=== PATIENT | male | born 1975 | race Caucasian/White ===

== ENCOUNTER 2018-04-27 19:52 | Inpatient (IN) | payer MEDICAID ==
[~2018-04-27] VITALS: Ht 167.6 cm; Wt 125.2 kg
--- NOTE | 2018-04-27 20:05 | NUR ---
PT MARIUSZ FROM [facility], FAMILY CALLED 911 FOR PT ETOH INTOXICATION. PT BG 132 IN THE FIELD. PT IN BED 12. WILL CONTINUE TO MONITOR.
--- NOTE | 2018-04-27 20:15 | NUR ---
PT FAMILY AT BEDSIDE
[2018-04-27] MEDS ORDERED: IV NS 0.9% 1,000 ML BAG IV ONE ×2 (20:30→22:00)
[2018-04-27] MEDS ORDERED: LORAZEPAM INJ 2 MG/ML VIAL IV ONE (20:30)
[2018-04-27] MEDS ORDERED: LORAZEPAM INJ 2 MG/ML VIAL ONE (20:31)
[2018-04-27 21:19] LABS: CREATININE 0.6 mg/dL (0.6-1.3)
[2018-04-27 21:27] LABS: ALBUMIN 1.7 g/dL (3.4-5.0); BILIRUBIN,DIRECT 13.8 mg/dL (0.0-0.2); BILIRUBIN,TOTAL 17.8 mg/dL (0.2-1.0); TOTAL PROTEIN, SERUM 8.1 g/dL (6.4-8.2)
[2018-04-27 21:32] LABS: BASOPHILS # (AUTO) 0.1 /CMM (0.0-0.2); BASOPHILS % (AUTO) 1.1 % (0.0-2.0); EOSINOPHILS % (AUTO) 0.6 % (0.0-6.0); HEMATOCRIT 28 % (39-51); HEMOGLOBIN 9.7 g/dL (13.5-17.5); LYMPHOCYTES # (AUTO) 0.6 /CMM (0.8-4.8); LYMPHOCYTES % (AUTO) 11.6 % (20.0-44.0); MEAN CORPUSCULAR HGB CONC 34 g/dl (31.0-36.0); MEAN CORPUSCULAR VOLUME 100 fL (80-96); MONOCYTES # (AUTO) 0.6 /CMM (0.1-1.30); MONOCYTES % (AUTO) 11.8 % (2.0-12.0); NEUTROPHILS # (AUTO) 3.8 /CMM (1.8-8.9); NEUTROPHILS % (AUTO) 74.9 % (43.0-81.0); RED BLOOD CELL COUNT(AUTO) 2.83 MIL/uL (4.5-6.0); WHITE BLOOD COUNT (AUTO) 5.1 K/uL (4.3-11.0)
[2018-04-27 21:44] LABS: PLATELET COUNT (AUTO) 29 /CMM (150-450)
[2018-04-27 21:47] LABS: BAND % (MANUAL) 16 % (0.0-5.0); LYMPHOCYTES % (MANUAL) 12 % (16-48); MONOCYTES % (MANUAL) 14 % (0-11.0); NEUTROPHILS % (MANUAL) 58 (42-76)
[2018-04-27] MEDS ORDERED: POTASSIUM CHLORIDE 20 MEQ TAB.PRT.SR PO ONE (22:00)
--- NOTE | 2018-04-27 22:30 | NUR ---
ULTRASOUND AT BEDSIDE
[2018-04-27] MEDS ORDERED: LEVOFLOXACIN 750 MG /D5W 150ML 150 ML IV ONE (23:51)
--- NOTE | 2018-04-27 23:52 | NUR ---
TECH AT BEDSIDE FOR EKG
[2018-04-28] MEDS ORDERED: LEVOFLOXACIN 750 MG /D5W 150ML PIGGYBACK IV ONE
--- NOTE | 2018-04-28 00:10 | NUR ---
REPORT GIVEN TO KEYSHA TURK FOR DAVIAN
[2018-04-28 00:38] VITALS: BP 143/82
--- NOTE | 2018-04-28 00:38 | NUR ---
HAIR STYLIST ADMITTING NOTES PATIENT RECEIVED FROM ER VIA [facility] SAFELY TRANSFERRED TO BED, ALERT AND ORIENTED X 2 AT THIS TIME, PATIENT IS INTOXICATED, ABLE TO MAKE SIMPLE NEEDS KNOWN. RESPIRATIONS EVEN AND UNLABORED WITH EQUAL RISE AND FALL OF CHEST, DENIES ANY PAIN AT THIS TIME, NOTED SKIN COLOR YELLOW, JUANDICE PRESENT, AND ABDOMEN DISTENTION , BODY ASSESSMENT DONE NOTED DISCOLORATION TO BOTH UPPER AND LOWER SCATTERED DISCOLORATIONS, LEFT AND RIGHT FOOT SCALY DRY SKIN AND GROIN AND BACK RASH. IV SITE TO RIGHT AC #20 G. INTACT AND PATENT, ATB LEVOFLOXACIN RUNNING WILL RUN TILL DONE, BELONGINGS LIST DONE, PLACED ON BUSINESS SYSTEMS ANALYST SR 91, BED BATH GIVEN AND CHANGED, ORIENTED TO STAFF AND CALL LIGHT AND KEPT WITHIN REACH, BED ALARM IN PLACE, LOW BED AND LOCKED, BED ALARM IN PLACE, URINAL OFFERED, ALL NEEDS ATTENDED AT THIS TIME, WILL NOTIFY MD OF ADMISSION AND FOLLOW MD ORDERS.
[2018-04-28] MEDS ORDERED: Folic acid 1 MG in IV D5W 50 ML IV SCH (02:00)
[2018-04-28] MEDS ORDERED: Potassium Chloride 20 MEQ in IV D5/ 0.9% NACL 1,000 ML IV PRN (02:00)
[2018-04-28] MEDS ORDERED: Thiamine 100 MG in IV D5W 50 ML IV SCH (02:00)
[2018-04-28] MEDS ORDERED: ONDANSETRON HCL/PF 4 MG/2 ML VIAL IVP PRN (02:00)
[2018-04-28] MEDS ORDERED: MVI-12 10ML IV ONE (02:00)
[2018-04-28] MEDS: IV D5/ 0.9% NACL 1,000 ML IV SCH ×3 (03:00→15:30)
--- NOTE | 2018-04-28 03:00 | NUR ---
INDUSTRIAL METHODS CONSULTANT NOTES MADE DR KAHN AWARE PER RN SUP WE DO NOT HAVE MVI AND POTASSIUM CHLORIDE 20MEQ D5NS AVAILABLE AT THIS TIME. NEW ORDER FOR D5NS AT 80ML/HR AND KCI 30MEQ IV.
[2018-04-28] MEDS: POTASSIUM CL. PREMIX PERIPHER. 50 ML IV SCH ×3 (03:30→06:01)
--- NOTE | 2018-04-28 03:30 | NUR ---
PARKING CONTROL OFFICER NOTES MD MADE AWARE OF PATIENT X1 NOSE BLEED WILL CONTINUE TO MONITOR, NO NEW ORDERS AT THIS TIME.
--- NOTE | 2018-04-28 03:30 | NUR ---
STEEL WORKER NOTES FAXED ORDERS FOR FOLIC ACID AND THIAMINE TO RN SUP. WILL ADMINISTER ONCE RECEIVED. SPOKE TO BUSINESS INTEGRATION MANAGER PHARM MADE AWARE MVI IS UNAVAILABLE.PER PHARM WILL HOLD AT THIS TIME.
[2018-04-28 04:00] VITALS: BP 136/68
[2018-04-28] MEDS ORDERED: Folic acid 1 MG/0.2 ML VIAL ONE (04:04)
[2018-04-28] MEDS ORDERED: Thiamine 100 MG/ML VIAL ONE (04:04)
[2018-04-28 04:13] VITALS: BP 136/68
--- NOTE | 2018-04-28 06:44 | NUR ---
HUMAN RESOURCE CONSULTANT CLOSING NOTES PATIENT IS AWAKE ALERT AND ORIENTED X3, RESPIRATIONS EVEN AND UNLABORED WITH EQUAL RISE AND FALL OF CHEST, DENIES ANY PAIN OR DISCOMFORT AT THIS TIME, POTASSIUM 30 MEQ GIVEN, THIAMINE ORDERED GIVEN, FOLIC ACID ORDERED GIVEN. IV SITE TO RIGHT AC #20 G INTACT AND PATENT, NO REDNESS, NO INFILTRATION PRESENT, IVF IN PLACE D5NS AT 80ML/HR. URINAL AND FLUIDS OFFERED, ALL NEEDS WERE ATTENDED, SAFETY PRECAUTIONS IN PLACE, LOW BED AND LOCKED, BED ALARM AND CALL LIGHT KEPT WITHIN REACH, WILL CONTINUE TO MONITOR AND ENDORSE TO NEXT SHIFT.
[2018-04-28 06:47] LABS: BASOPHILS # (AUTO) 0.1 /CMM (0.0-0.2); BASOPHILS % (AUTO) 1.7 % (0.0-2.0); EOSINOPHILS % (AUTO) 0.9 % (0.0-6.0); HEMATOCRIT 29 % (39-51); LYMPHOCYTES # (AUTO) 0.7 /CMM (0.8-4.8); LYMPHOCYTES % (AUTO) 14.6 % (20.0-44.0); MEAN CORPUSCULAR HGB CONC 35 g/dl (31.0-36.0); MEAN CORPUSCULAR VOLUME 100 fL (80-96); MONOCYTES # (AUTO) 0.7 /CMM (0.1-1.30); MONOCYTES % (AUTO) 13.2 % (2.0-12.0); NEUTROPHILS # (AUTO) 3.6 /CMM (1.8-8.9); NEUTROPHILS % (AUTO) 69.6 % (43.0-81.0); RED BLOOD CELL COUNT(AUTO) 2.86 MIL/uL (4.5-6.0); WHITE BLOOD COUNT (AUTO) 5.1 K/uL (4.3-11.0)
[2018-04-28 07:08] LABS: ALANINE AMINOTRANSFERASE 45 U/L (12-78); ALBUMIN 1.6 g/dL (3.4-5.0); ALKALINE PHOSPHATASE 172 U/L (46-116); ASPARTATE AMINOTRANSFERASE 216 U/L (15-37); BILIRUBIN,TOTAL 17.9 mg/dL (0.2-1.0); CALCIUM, SERUM 7.1 mg/dL (8.5-10.1); CARBON DIOXIDE 21 mmol/L (21-32); CHLORIDE 95 mmol/L (98-107); CREATININE 0.5 mg/dL (0.6-1.3); GLUCOSE 98 mg/dL (74-106); MAGNESIUM 1.7 mg/dL (1.8-2.4); PHOSPHORUS 2.1 mg/dL (2.5-4.9); POTASSIUM 3.4 mmol/L (3.5-5.1); SERUM AMMONIA 70 umol/L (11-32); SODIUM SERUM 126 mmol/L (136-145); TOTAL PROTEIN, SERUM 7.9 g/dL (6.4-8.2); UREA NITROGEN, BLOOD 4 mg/dL (7-18)
[2018-04-28 07:42] LABS: PLATELET COUNT (AUTO) 27 /CMM (150-450)
--- NOTE | 2018-04-28 07:51 | NUR ---
ASBESTOS SIDING INSTALLER NOTES CALLED TO NOTIFY EPIC MD OF PLT LEVEL 27. CL UNABLE TO REACH MD AT THIS TIME OR CALL BACK WILL ENDORSE TO NEXT SHIFT.
[2018-04-28 07:52] LABS: BAND % (MANUAL) 3 % (0.0-5.0); BASOPHILS % (MANUAL) 1 % (0.0-2.0); LYMPHOCYTES % (MANUAL) 14 % (16-48); MONOCYTES % (MANUAL) 9 % (0-11.0); NEUTROPHILS % (MANUAL) 73 (42-76)
[2018-04-28 08:00] VITALS: BP 133/72
--- NOTE | 2018-04-28 08:00 | NUR ---
ms rn received on bed, awake, very confused,not in any form of distress,respirations even and unlabored,no sob noted,denies pain at this time.iv pulled out,will insert later. all needs attended.
[2018-04-28 08:12] LABS: CHOLESTEROL 96 mg/dL (<200); LDL 85 mg/dL (0-99); TRIGLYCERIDES 195 mg/dL (30-150)
[2018-04-28 08:13] LABS: HDL CHOLESTEROL < 10 mg/dL (40-60)
[2018-04-28] MEDS: PANTOPRAZOLE 40 MG VIAL IV SCH (09:23)
--- NOTE | 2018-04-28 09:45 | NUR ---
ms quezada breakfast served,due meds given,tolerated well.
--- NOTE | 2018-04-28 10:45 | NUR ---
WOUND CARE CONSULT: NO RASH NOTED. PT PRESENTS WITH BRUISING AND HUGE ABDOMEN. PT INDEPENDENT WITH BED MOBILITY. PER NURSING STAFF, PT HAD LOOSE STOOLS PREVIOUSLY. WILL SEE PRN.
[2018-04-28] MEDS ORDERED: POTASSIUM PHOSPHATE MM 7.5 MMOL in IV D5W 100 ML IV SCH (11:00)
[2018-04-28] MEDS ORDERED: Magnesium 1GM/D5W 100ML PREMIX PIGGYBACK IV ONE (11:00)
[2018-04-28] MEDS ORDERED: POTASSIUM CHLORIDE 10 MEQ TABLET.SA PO ONE (11:00)
[2018-04-28] MEDS ORDERED: Z GUARD REMEDY 2 OZ OINT TP PRN (11:00)
--- NOTE | 2018-04-28 11:24 | NUR ---
Social service consult requested by Dr. Banuelos for ETOH. Pt. is a 42 year old male who was admitted to [facility] for pneumonia and alcohol intoxication. Per ER notes, patient says that his family wanted him to come to the emergency room because of his heavy drinking. Patient's family reports that the patient has been drinking more heavily over the last year but has been a drinker for many years. SW attempted to meet with pt. bedside, however pt. is not alert and oriented at this time. SW to assess pt. when he is more alert and oriented. Pt. is Martiniquais speaking.
[2018-04-28] MEDS: MVI ADULT 10ML VIAL = 1AMP 10 ML in IV D5/ 0.9% NACL 1,000 ML IV PRN (14:54)
[2018-04-28] MEDS: Z GUARD REMEDY 2 OZ OINT TP SCH (14:56)
[2018-04-28] MEDS: LACTULOSE 10 G/15 ML UDC (PYXIS) PO SCH ×3 (14:56→23:29)
[2018-04-28 16:00] VITALS: BP 129/82
--- NOTE | 2018-04-28 18:36 | NUR ---
ms rn on bed,no distress noted, daughter at bedside.
--- NOTE | 2018-04-28 19:10 | NUR ---
RN MS OPENING NOTES RECEIVED PATIENT IN BED AWAKE ALERT AND ORIENTED X 3, ABLE TO MAKE SIMPLE NEEDS KNOWN , RESPIRATIONS EVEN AND UNLABORED WITH EQUAL RISE AND FALL OF CHEST, DENIES ANY PAIN OR DISCOMFORT. IV SITE TO RIGHT FA INTACT AND PATENT, NO REDNESS NO INFILTRATION PRESENT, IVF RUNNING ORDERED, URINAL OFFERED, ORIENTED TO STAFF AND CALL LIGHT, LOW BED AND LOCKED, BED ALARM IN PLACE, ALL NEEDS ATTENDED WILL CONTINUE TO MONITOR AND ATTENDED TO NEEDS.
[2018-04-28 20:00] VITALS: BP 142/81
--- NOTE | 2018-04-28 20:30 | NUR ---
KEYSHA CONTRERAS NOTES NOTED WITH ELEVATED TEMP 100.3 COOLING MEASURES PROVIDES, MAIRA REMOVED, WILL CONTINUE TO MONITOR. Addendum: 04/28/18 at 2136 by BURKE VILLELA RN AND ITZEL GAN
--- NOTE | 2018-04-28 21:00 | NUR ---
RN MS NOTES NEW ORDER PER SALOMON MONET FOR BLOOD CULTURE X1 STAT.
[2018-04-28 21:32] LABS: BASOPHILS # (AUTO) 0.1 /CMM (0.0-0.2); BASOPHILS % (AUTO) 1.9 % (0.0-2.0); EOSINOPHILS % (AUTO) 0.6 % (0.0-6.0); HEMATOCRIT 30 % (39-51); HEMOGLOBIN 10.4 g/dL (13.5-17.5); LYMPHOCYTES # (AUTO) 0.7 /CMM (0.8-4.8); LYMPHOCYTES % (AUTO) 11.2 % (20.0-44.0); MEAN CORPUSCULAR HGB CONC 35 g/dl (31.0-36.0); MEAN CORPUSCULAR VOLUME 101 fL (80-96); MONOCYTES # (AUTO) 0.9 /CMM (0.1-1.30); MONOCYTES % (AUTO) 13.1 % (2.0-12.0); NEUTROPHILS # (AUTO) 4.8 /CMM (1.8-8.9); NEUTROPHILS % (AUTO) 73.2 % (43.0-81.0); RED BLOOD CELL COUNT(AUTO) 2.97 MIL/uL (4.5-6.0); WHITE BLOOD COUNT (AUTO) 6.5 K/uL (4.3-11.0)
[2018-04-28 21:40] LABS: PLATELET COUNT (AUTO) 30 /CMM (150-450)
[2018-04-28 21:56] LABS: ALBUMIN 1.9 g/dL (3.4-5.0); BILIRUBIN,TOTAL 21.9 mg/dL (0.2-1.0); CALCIUM, SERUM 7.7 mg/dL (8.5-10.1); CREATININE 0.6 mg/dL (0.6-1.3); POTASSIUM 3.5 mmol/L (3.5-5.1); TOTAL PROTEIN, SERUM 8.8 g/dL (6.4-8.2)
[2018-04-28] MEDS ORDERED: LEVOFLOXACIN 500 MG /D5W 100ML 500 MG in PREMIX 1 EA IV SCH (22:00)
--- NOTE | 2018-04-28 22:00 | NUR ---
RN MS NOTES TEMPERATURE REASSESSED COOLING MEASURES EFFECTIVE, CURRENT TEMPERATURE IS 98.9
[2018-04-28 22:06] LABS: LYMPHOCYTES % (MANUAL) 11 % (16-48); MONOCYTES % (MANUAL) 12 % (0-11.0); NEUTROPHILS % (MANUAL) 77 (42-76)
[2018-04-28 22:51] LABS: PROTEIN,URINE TRACE mg/dl (NEGATIVE)
[2018-04-28 22:52] LABS: BILIRUBIN,URINE 3+ (NEGATIVE); BLOOD, URINE TRACE Ery/uL (NEGATIVE); KETONES,URINE TRACE (NEGATIVE); UGLUCOSE NEGATIVE (NEGATIVE)
[2018-04-28 22:54] LABS: APPEARANCE,URINE SLIGHTLY CLOUDY (CLEAR); COLOR,URINE ORANGE (YELLOW)
[2018-04-28 22:55] LABS: LEUKOCYTE ESTERASE ,URINE NEGATIVE (NEGATIVE); NITRITE, URINE NEGATIVE (NEGATIVE); PH,URINE 6.5 (5.0-8.0); UROBILINOGEN,URINE 0.2 EU/dL (0.2)
[2018-04-28 22:59] LABS: BACTERIA,URINE Few /HPF (None Seen); RBC,URINE 0-2 /HPF (0-2); SQUAMOUS EPITHELIAL CELL,UR Few /HPF (None Seen)
--- NOTE | 2018-04-28 23:26 | NUR ---
RN MS NOTES CRITICAL LAB PLATELET OF 30 REPORTED NO NEW ORDER PER NORMAN GAN AND URINE PROFILE RESULTS REPORTED NO NEW ORDERS AT THIS TIME
[2018-04-29] VITALS (28 sets, daily range): BP systolic 91–140; BP diastolic 46–81
[2018-04-29] MEDS: IV D5/ 0.9% NACL 1,000 ML IV SCH ×2 (04:24→18:08)
[2018-04-29] MEDS: LACTULOSE 10 G/15 ML UDC (PYXIS) PO SCH ×3 (04:33→17:48)
--- NOTE | 2018-04-29 06:36 | NUR ---
RN MS CLOSING NOTES PATIENT REMAINS IN BED AWAKE ALERT AND ORIENTED X 3, ABLE TO MAKE NEEDS KNOWN, RESPIRATIONS EVEN AND UNLABORED WITH EQUAL RISE AND FALL OF CHEST.DENIES ANY PAIN OR DISCOMFORT, IV SITE TO RIGHT FA #22 G INTACT AND PATENT,IVF RUNNING ORDERED, NO REDNESS, NO INFILTRATION PRESENT TO IV SITE. PATIENT HAD X 1 BM REMAINS AFEBRILE AT THIS TIME, KEPT CLEAN AND DRY REPOSITIONED, ALL NEEDS WERE ATTENDED, SAFETY PRECAUTIONS IN PLACE,LOW BED AND LOCKED, BED ALARM IN PLACE, URINAL AND CALLLIGHT AT BEDSIDE, ALL NEEDS ATTENDED WILL CONTINUE TO MONITOR AND ENDORSE TO NEXT SHIFT.
[2018-04-29 07:32] LABS: BASOPHILS # (AUTO) 0.1 /CMM (0.0-0.2); BASOPHILS % (AUTO) 0.8 % (0.0-2.0); EOSINOPHILS % (AUTO) 0.6 % (0.0-6.0); HEMATOCRIT 29 % (39-51); HEMOGLOBIN 10.1 g/dL (13.5-17.5); LYMPHOCYTES # (AUTO) 1.2 /CMM (0.8-4.8); LYMPHOCYTES % (AUTO) 15.3 % (20.0-44.0); MEAN CORPUSCULAR HGB CONC 35 g/dl (31.0-36.0); MEAN CORPUSCULAR VOLUME 102 fL (80-96); MONOCYTES # (AUTO) 0.9 /CMM (0.1-1.30); MONOCYTES % (AUTO) 11.6 % (2.0-12.0); NEUTROPHILS # (AUTO) 5.4 /CMM (1.8-8.9); NEUTROPHILS % (AUTO) 71.7 % (43.0-81.0); RED BLOOD CELL COUNT(AUTO) 2.88 MIL/uL (4.5-6.0); WHITE BLOOD COUNT (AUTO) 7.6 K/uL (4.3-11.0)
--- NOTE | 2018-04-29 07:50 | NUR ---
RT NOTE UPON ARRIVAL @ CODE BLUE CPR ALREADY INITIATED. PT ORALLY INTUBATED VIA ETT #7.5, 22CM @ THE LIP @ 0800. COLORMETRIC CO2 COLOR CHANGE CONFIRMED. CLEAR BILATERAL B/S HEARD ON AUSCULTATION. ROSC ACHIEVED @ 0810. PT TRANSFERRED TO ICU AND PLACED ON [facility] VENT PER MD ORDERS. AWAITING CHEST XRAY RESULTS, AND ABG TO BE TAKEN. ALARMS ARE SET AND AUDIBLE, VENT PLUGGED INTO RED OUTLET. AMBU BAG BEDSIDE. WILL CONTINUE TO MONITOR CLOSELY Addendum: 04/29/18 at 1101 by MARTITA NAVARRO RT Amended: Links added.
[2018-04-29 08:03] LABS: PLATELET COUNT (AUTO) 35 /CMM (150-450)
[2018-04-29 08:09] LABS: CALCIUM, SERUM 7.7 mg/dL (8.5-10.1); CREATININE 0.5 mg/dL (0.6-1.3); POTASSIUM 3.6 mmol/L (3.5-5.1)
--- NOTE | 2018-04-29 08:10 | NUR ---
RN NOTE AT 0715 PT FOUND TO HAVE HIS IV ACCESS PULLED OUT, BLEEDING FROM SITE. DRESSING AND PRESSURE APPLIED. PT AWAKE AND CONFUSED, RESTLESS. LATER ON AROUND 0735 PT ASKED FOR WATER, TOOK A SIP AND BEGAN SHAKING SEVERELY WITH WHOLE BODY, AFTER SEIZING PT PASSED OUT, UNRESPONSIVE, NO BREATHING, NO PULSE, DIAPHORETIC, MOHAMUD POLANCO CALLED AND IMMEDIATE CPR INITIATED. MOHAMUD POLANCO TEAM ARRIVED TO THE ROOM. PT INTUBATED, IV ACCESS OBTAINED, MEDS GIVEN, PT HAD PULSE AND SINUS TACHYCARDIA ON THE MONITOR. PT TRANSFERRED TO ICU AND REPORT GIVEN TO TATYANA AUTO ROLLER. FAMILY NOTIFIED BY STEAM SHOVEL ENGINEER NURSE.
[2018-04-29 08:12] LABS: BAND % (MANUAL) 7 % (0.0-5.0); EOSINOPHILS % (MANUAL) 1 % (0-4); LYMPHOCYTES % (MANUAL) 15 % (16-48); MONOCYTES % (MANUAL) 12 % (0-11.0); NEUTROPHILS % (MANUAL) 65 (42-76)
--- NOTE | 2018-04-29 08:42 | NUR ---
RN NOTE NETWORK PROJECT MANAGER SALOMON MONET NOTIFIED ABOUT CODE BLUE STATUS AND PT BEING TRANSFERRED TO ICU. PER NETWORK PROJECT MANAGER, HE WILL SEE THE PT IN ICU.
--- NOTE | 2018-04-29 09:30 | NUR ---
RN INITIAL NOTES 0820 RECEIVED PT FROM ROOM 116-1, SP CODE BLUE. PT INTUBATED, ON VENT. NO RESPIRATORY DISTRESS NOTED. NO SOB NOTED. PT CONNECTED TO MONITOR, SINUS RHYTHM. VS WNL. BODY ASSESSMENT DONE, MULTIPLE BRUISES NOTED. WILL CLOSELY MONITOR. 0930 SEEN AND EXAMINED BY DR DELUCA AND DR CROOKS. AWARE OF PT'S CURRENT STATUS. AWARE OF CURRENT LAB VALUES AND IMAGING STUDIES. WILL MONITOR 1000 DR DELUCA IN THE UNIT. AWARE OF CXR RESULT. VERBALLY ORDER TO PUSH DOWN ETT BY 3CM. JOO ALVES AWARE. WILL MONITOR.
--- NOTE | 2018-04-29 10:18 | NUR ---
ET TUBE ADJUSTED FROM 22 CM [id number]-LIPS TO 25 CM [id number]-LIPS. Addendum: 04/29/18 at 1018 by JOO CHANDLER RT Amended: Links added.
[2018-04-29 10:24] LABS: ABG BASE EXCESS -5.6 mmol/L; ABG OXYGEN SATURATION 99.5 % (92.0-98.5); ABG PCO2 38.2 mmHg (35.0-45.0); ABG PH 7.333 (7.350-7.450); ABG PO2 183.3 mmHg (75.0-100.0); AaDO2 202.5 mmHg; COHb 1.7 % (0.5-1.5); MetHb 0.3 % (0.0-1.5); O2Hb 97.5 % (94.0-97.0); SITE, ABG Left Radial; VENT MODE, BG AC 16 550 60% +5
[2018-04-29] MEDS: PROPOFOL 100 ML IV PRN ×5 (10:28→21:58)
[2018-04-29] MEDS: Folic acid 1 MG in IV D5W 50 ML IV SCH (11:16)
[2018-04-29] MEDS: Thiamine 100 MG in IV D5W 50 ML IV SCH (11:16)
[2018-04-29] MEDS: PANTOPRAZOLE 40 MG VIAL IV SCH (11:16)
[2018-04-29] MEDS: Z GUARD REMEDY 2 OZ OINT TP SCH (11:21)
[2018-04-29] MEDS ORDERED: FEE PK DOSING 1 MIN EA MC ONE (11:32)
[2018-04-29] MEDS ORDERED: CALCIUM CHLORIDE 1,000 MG/10 ML DISP.SYRIN IV ONE (11:33)
[2018-04-29] MEDS ORDERED: FEE EMEERGENCY 1 MIN EA MC ONE (11:33)
[2018-04-29] MEDS ORDERED: EPINEPHRINE (1:10,000) SYRINGE 1 MG/10 ML DISP.SYRIN IVP ONE (11:33)
[2018-04-29] MEDS ORDERED: DEXTROSE 50%-WATER 50 ML DISP.SYRIN IV ONE (11:33)
[2018-04-29] MEDS ORDERED: PIPERACILLIN /TAZOBACTAM 3.375 G in IV D5W 50 ML IV ONE (12:00)
[2018-04-29] MEDS ORDERED: LACTULOSE 10 G/15 ML UDC (PYXIS) PO SCH (13:00)
[2018-04-29] MEDS: MVI ADULT 10ML VIAL = 1AMP 10 ML in IV D5/ 0.9% NACL 1,000 ML IV PRN (14:45)
[2018-04-29] MEDS: PIPERACILLIN /TAZOBACTAM 3.375 G in IV D5W 100 ML IV SCH (17:48)
--- NOTE | 2018-04-29 19:18 | NUR ---
bedside report given to Osiris CHOPRA at bedside
--- NOTE | 2018-04-29 19:30 | NUR ---
ICU/RN-RECEIVED PT. FROM DAYSHIFT, ON BED, POST SEDATED ON DIPRIVAN DRIP AT 40MCG/KG/MIN,SAS-3. NO JAY, W/ BILATERAL SOFT WRIST RESTRAINTS TO PREVENT SELF EXTUBATION. WILL FOLLOW PROTOCOL AND REASSESS PT. Q HR. PER PROTOCOL. ON THE VENT PER ETT. 7.5 AT 26 CM LIP LINE. W/ THE FOLLOWING SETTINGS:AC-16, VT-550, FIO2-40% +5 PEEP. SAT.-99%. EKG SR W/ HR-90. BP-114/65. URINE OUTPUT GROSSLY HEMATURIC ADEQUATE PER FC. AFEBRILE T-99.2/f. PT. IS A FULL CODE. WILL CONTINUE TO MONITOR PER PROTOCOL.
--- NOTE | 2018-04-29 19:48 | NUR ---
PT RCVD ORALLY INTUBATED VIA ETT #7.5, 25CM @ THE LIP ON THE VENT WITH NOTED SETTINGS, AC 16,550,40% PEEP 5. BILATERAL B/S HEARD ON AUSCULTATION. PT IS SEDATED. SUCTIONED LARGE AMOUNT OF BLOODY SECRETIONS . NO RESPIRATORY DISTRESS NOTED AT THIS TIME. ALARMS ARE SET AND AUDIBLE, VENT PLUGGED INTO RED OUTLET. AMBU BAG BEDSIDE. WILL CONTINUE TO MONITOR CLOSELY
--- NOTE | 2018-04-29 20:00 | NUR ---
ICU/RN- PT. IS FOR CT OF HEAD W/ NO CONTRAST OM. AT 0900.
[2018-04-29 21:08] LABS: ALBUMIN 1.5 g/dL (3.4-5.0); BILIRUBIN,DIRECT 15.2 mg/dL (0.0-0.2); TOTAL PROTEIN, SERUM 7.4 g/dL (6.4-8.2)
[2018-04-29 21:09] LABS: BASOPHILS # (AUTO) 0.1 /CMM (0.0-0.2); BASOPHILS % (AUTO) 1.3 % (0.0-2.0); EOSINOPHILS % (AUTO) 0.9 % (0.0-6.0); HEMATOCRIT 27 % (39-51); HEMOGLOBIN 9.3 g/dL (13.5-17.5); LYMPHOCYTES # (AUTO) 0.5 /CMM (0.8-4.8); LYMPHOCYTES % (AUTO) 8.2 % (20.0-44.0); MEAN CORPUSCULAR HGB CONC 35 g/dl (31.0-36.0); MEAN CORPUSCULAR VOLUME 102 fL (80-96); MONOCYTES # (AUTO) 0.7 /CMM (0.1-1.30); MONOCYTES % (AUTO) 12.4 % (2.0-12.0); NEUTROPHILS # (AUTO) 4.5 /CMM (1.8-8.9); NEUTROPHILS % (AUTO) 77.2 % (43.0-81.0); RED BLOOD CELL COUNT(AUTO) 2.62 MIL/uL (4.5-6.0); WHITE BLOOD COUNT (AUTO) 5.9 K/uL (4.3-11.0)
[2018-04-29 21:13] LABS: PLATELET COUNT (AUTO) 31 /CMM (150-450)
[2018-04-29 21:39] LABS: BAND % (MANUAL) 18 % (0.0-5.0); LYMPHOCYTES % (MANUAL) 15 % (16-48); MONOCYTES % (MANUAL) 9 % (0-11.0); NEUTROPHILS % (MANUAL) 58 (42-76)
[2018-04-30] VITALS (46 sets, daily range): BP systolic 51–126; BP diastolic 39–76
[2018-04-30] MEDS: PROPOFOL 100 ML IV PRN ×10 (01:20→22:10)
[2018-04-30] MEDS: PIPERACILLIN /TAZOBACTAM 3.375 G in IV D5W 100 ML IV SCH ×3 (01:44→17:44)
--- NOTE | 2018-04-30 02:00 | NUR ---
ICU/RN-PT. HAD BM SCANTY, DRY, BLACKISH COLOR, NOT ENOUGH FOR STOOL FOR OB.
[2018-04-30] MEDS: LORAZEPAM INJ 2 MG/ML VIAL IV PRN (03:28)
--- NOTE | 2018-04-30 04:00 | NUR ---
ICU/RN- PT. ETT SECRETIONS WERE BLOODY, FREQUENT COLD NS LAVAGE DONE BY RT ALEXANDRE W/ FRED, NOTED MUCH LESS BLOODY, SECRETIONS. WILL CONTINUE TO MONITOR PER PROTOCOL.
[2018-04-30 04:49] LABS: BASOPHILS # (AUTO) 0.1 /CMM (0.0-0.2); BASOPHILS % (AUTO) 1.1 % (0.0-2.0); EOSINOPHILS % (AUTO) 1.5 % (0.0-6.0); HEMATOCRIT 26 % (39-51); LYMPHOCYTES # (AUTO) 0.7 /CMM (0.8-4.8); LYMPHOCYTES % (AUTO) 12.5 % (20.0-44.0); MEAN CORPUSCULAR HGB CONC 35 g/dl (31.0-36.0); MEAN CORPUSCULAR VOLUME 102 fL (80-96); MONOCYTES # (AUTO) 0.8 /CMM (0.1-1.30); MONOCYTES % (AUTO) 14.3 % (2.0-12.0); NEUTROPHILS # (AUTO) 4.1 /CMM (1.8-8.9); NEUTROPHILS % (AUTO) 70.6 % (43.0-81.0); RED BLOOD CELL COUNT(AUTO) 2.53 MIL/uL (4.5-6.0); WHITE BLOOD COUNT (AUTO) 5.8 K/uL (4.3-11.0)
[2018-04-30 04:53] LABS: PLATELET COUNT (AUTO) 33 /CMM (150-450)
[2018-04-30] MEDS: IV D5/ 0.9% NACL 1,000 ML IV SCH (05:00)
[2018-04-30 05:06] LABS: LYMPHOCYTES % (MANUAL) 14 % (16-48); MONOCYTES % (MANUAL) 13 % (0-11.0); NEUTROPHILS % (MANUAL) 73 (42-76)
[2018-04-30 05:21] LABS: CALCIUM, SERUM 7.4 mg/dL (8.5-10.1); MAGNESIUM 1.9 mg/dL (1.8-2.4); POTASSIUM 3.3 mmol/L (3.5-5.1)
[2018-04-30] MEDS: LACTULOSE 10 G/15 ML UDC (PYXIS) PO SCH ×5 (05:41→23:19)
--- NOTE | 2018-04-30 06:47 | NUR ---
RN/ICU- REMAINS SEDATED ON DIPRIVAN DRIP, NO S/S OF AGITATION,ON THE VENT PER ETT, SATS.-100%
--- NOTE | 2018-04-30 07:10 | NUR ---
RN INITIAL NOTES: Rec'd pt on bed, sedated. On MV via ETT, noted blood on pt's mouth, sating at 98%. On telemonitor, SR 88 bpm. Has OGT clamped for GTF, only for meds. Has IV line access on RFA G20 w/ Diprivan x 50 mcg infusing well & LAC G20 w/ D5NS x 80 cc/hr infusing well. On bilateral soft wrist restraints for pt's safety. Has FC draining to BSB w/ hematuria UOP. Safety prec in place - bed in locked & lowest pos. Call light w/in reach. Will cont to monitor & attend pt needs.
--- NOTE | 2018-04-30 08:07 | NUR ---
Pt seen & examined by Dr. Gray.
[2018-04-30] MEDS ORDERED: POTASSIUM CHLORIDE 20 MEQ POWDER PACKET NG SCH (08:30)
[2018-04-30] MEDS: Z GUARD REMEDY 2 OZ OINT TP SCH (08:33)
--- NOTE | 2018-04-30 08:55 | NUR ---
SPOKE WITH RN. PT STILL UNSTABLE TO COME DOWN FOR CT HEAD. RN WILL CALL BACK WHEN PT READY.
[2018-04-30 08:57] LABS: ABG BASE EXCESS -5.7 mmol/L; ABG OXYGEN SATURATION 98.4 % (92.0-98.5); ABG PCO2 30.1 mmHg (35.0-45.0); ABG PO2 129.8 mmHg (75.0-100.0); AaDO2 120.8 mmHg; COHb 0.7 % (0.5-1.5); MetHb 0.6 % (0.0-1.5); O2Hb 97.1 % (94.0-97.0); PEEP,BG 5 cm H2O; SITE, ABG Left Radial; VT, ABG 550 mL
[2018-04-30] MEDS ORDERED: PANTOPRAZOLE 40 MG/PACK PACK NG SCH (09:00)
--- NOTE | 2018-04-30 09:00 | NUR ---
Pt seen & examined by Dr. Martinez. Made him aware that sedation vacation was not done d/t respiratory distress.
[2018-04-30] MEDS: Thiamine 100 MG in IV D5W 50 ML IV SCH (09:19)
--- NOTE | 2018-04-30 09:40 | NUR ---
Pt seen & examined by CASSANDRA Bonilla. Per RIGHT OF WAY MAN, CT scan of the head not that urgent. May do once pt is stable.
--- NOTE | 2018-04-30 10:00 | NUR ---
Upon suctioning, noted pt's 2 front teeth are loose - [address] Martinez made aware w/ orders may do tooth extraction if able. Sascha FIELD ADJUSTER also seen & examined pt & agreed to do tooth extraction, may apply surgicel after.
[2018-04-30] MEDS: Folic acid 1 MG in IV D5W 50 ML IV SCH (10:03)
[2018-04-30] MEDS ORDERED: CELLULOSE,OXIDIZED 1 PKT EACH MC ONE (10:30)
--- NOTE | 2018-04-30 12:00 | NUR ---
Pt is still bleeding from tooth extraction, refer to Sascha GAME PRODUCER w/ orders may apply another surgicel. Mother at bedside & updated about pt status as well as tooth extraction. Mother consented to tooth extraction, verbalized understanding re: need to do the tooth extraction.
[2018-04-30 12:09] LABS: D-DIMER 6.4 mg/L(FEU (0.17-0.50)
[2018-04-30] MEDS ORDERED: CELLULOSE,OXIDIZED 1 EA PACK MC ONE (12:30)
[2018-04-30] MEDS ORDERED: PHYTONADIONE INJ 10 MG/1 ML AMPUL SQ ONE (17:30)
--- NOTE | 2018-04-30 18:00 | NUR ---
Pt was seen & examined by Dr. Dooley w/ orders noted & carried out. Awaiting response re: clarification about cryoppt transfusion. Consent for blood transfusion secured from sisterRashi Caicedo NP signed the form & place in the chart. Addendum: 04/30/18 at 1918 by OSIEL ORTEGA RN Addendum: Per Dr. Dooley, to transfuse 10 units of cryoppt.
--- NOTE | 2018-04-30 18:49 | NUR ---
RN CLOSING NOTES: Pt still sedated. On MV via ETT, bleeding in pt's mouth stopped. On telemonitor, still SR. OGT kept clamped for GTF, only for meds. IV line access on RFA G20 & LAC G20 kept patent & intact, MAYRA midline w/ Diprivan x 70 mcg infusing well. Pt still on bilateral soft wrist restraints for pt's safety. FC kept draining to BSB w/ orange UOP. Safety prec kept in place - bed in locked & lowest pos. Call light w/in reach. Will endorse to PM RN for DAVIAN.
--- NOTE | 2018-04-30 19:10 | NUR ---
PT RCVD ORALLY INTUBATED VIA ETT #7.5, 25CM @ THE LIP ON THE VENT WITH NOTED SETTINGS, AC 12,550,30% PEEP 5. BILATERAL B/S HEARD ON AUSCULTATION. PT IS SEDATED. SUCTIONED MODERATE AMOUNT OF BLOOD TINGED SECRETIONS . NO RESPIRATORY DISTRESS NOTED AT THIS TIME. ALARMS ARE SET AND AUDIBLE, VENT PLUGGED INTO RED OUTLET. AMBU BAG AT BEDSIDE. WILL CONTINUE TO MONITOR CLOSELY
--- NOTE | 2018-04-30 19:32 | NUR ---
RECEIVED PT IN NO ACUTE DISTRESS IN BED. PT IS SEDATED WITH DIPRIVAN. PT IS ON MECHANICAL VENT VIA ETT. ETT IS CLEAN DRY AND INTACT 7.5/ 25 AT THE LIP. PT IS ON TELE WITH SR ON THE MONITOR. PT HAS OGT THAT IS CLEAN DRY INACT AND PATENT WITH FREE WATER FLUSH. PT HAS F/C THAT IS CLEAN DRY INTACT AND PATENT WITH ALFREDO COLOR URINE DRAINING. PT HAS RFA 20 AND LAC 20G THAT ARE CLEAN DRY INTACT AND PATENT. PT HAS LEFT UPPER ARM MIDLINE THAT IS CLEAN DRY INACT AND PATENT WITH DIPRIVAN @ 70MCG. BED IN LOW LOCK POSITION WITH RAILS UP X 2. CALL LIGHT WITHIN REACH AND ALL SAFETY MEASURES ENSURED AND CARRIED OUT. WILL CONTINUE TO MONITOR PT.
[2018-05-01] VITALS (37 sets, daily range): BP systolic 84–129; BP diastolic 39–71
[2018-05-01] MEDS: PROPOFOL 100 ML IV PRN ×9 (00:13→21:16)
[2018-05-01] MEDS: PIPERACILLIN /TAZOBACTAM 3.375 G in IV D5W 100 ML IV SCH ×3 (01:10→17:22)
[2018-05-01 03:26] LABS: OCCULT BLOOD STOOL POSITIVE (NEGATIVE)
[2018-05-01 04:47] LABS: BASOPHILS # (AUTO) 0.1 /CMM (0.0-0.2); BASOPHILS % (AUTO) 2.3 % (0.0-2.0); HEMATOCRIT 27 % (39-51); HEMOGLOBIN 9.2 g/dL (13.5-17.5); LYMPHOCYTES # (AUTO) 0.8 /CMM (0.8-4.8); LYMPHOCYTES % (AUTO) 15.3 % (20.0-44.0); MEAN CORPUSCULAR HGB CONC 34 g/dl (31.0-36.0); MEAN CORPUSCULAR VOLUME 103 fL (80-96); MONOCYTES # (AUTO) 0.7 /CMM (0.1-1.30); MONOCYTES % (AUTO) 14.3 % (2.0-12.0); NEUTROPHILS # (AUTO) 3.3 /CMM (1.8-8.9); NEUTROPHILS % (AUTO) 64.1 % (43.0-81.0); RED BLOOD CELL COUNT(AUTO) 2.59 MIL/uL (4.5-6.0); WHITE BLOOD COUNT (AUTO) 5.2 K/uL (4.3-11.0)
[2018-05-01 04:57] LABS: CALCIUM, SERUM 7.9 mg/dL (8.5-10.1); CREATININE 2.5 mg/dL (0.6-1.3); PLATELET COUNT (AUTO) 41 /CMM (150-450); POTASSIUM 3.5 mmol/L (3.5-5.1)
[2018-05-01 05:09] LABS: THYROID STIMULATING HORMONE 1.75 uIU/mL (0.358-3.74)
[2018-05-01 05:19] LABS: D-DIMER 7.42 mg/L(FEU (0.17-0.50)
[2018-05-01 05:25] LABS: EOSINOPHILS % (MANUAL) 2 % (0-4); LYMPHOCYTES % (MANUAL) 18 % (16-48)
[2018-05-01 05:28] LABS: MONOCYTES % (MANUAL) 11 % (0-11.0)
[2018-05-01 05:29] LABS: NEUTROPHILS % (MANUAL) 69 (42-76)
[2018-05-01] MEDS: LACTULOSE 10 G/15 ML UDC (PYXIS) PO SCH ×3 (06:09→17:22)
--- NOTE | 2018-05-01 07:54 | NUR ---
RT PT RECEIVED ORALLY INTUBATED WITH A 7.5 ETT SECURED AT 26CM AT THE LIP LINE, PT IS ON THE VENT WITH NOTED SETTINGS. PEEP DECREASED DUE TO HYPOTENSION. VENT ALARMS ARE SET AND AUDIBLE WITH BVM BY BEDSIDE. EDGE TRIMMER MECHANIC CUFF PRESSURE NOTED. VENT IS PLUGGED INTO RED OUTLET. PT SX'D MODERATE THIN BLOOD TINGED SECRETIONS. NO RESPIRATORY DISTRESS NOTED AT THIS TIME, WILL CONTINUE TO MONITOR. Addendum: 05/01/18 at 1455 by CORAZON CONTRERAS RT Amended: Links added.
--- NOTE | 2018-05-01 07:54 | NUR ---
PT REMAINS IN NO ACUTE DISTRESS IN BED. PT DID NOT HAVE ANY SIGNIFICANT CHANGE IN CONDITION DURING SHIFT. ALL NEEDS MET, ALL ORDERS CARRIED OUT. WILL ENDORSE CARE TO AM RN FOR CONTINUITY OF CARE.
--- NOTE | 2018-05-01 07:55 | NUR ---
GRAVITY PROSPECTOR OPENING NOTES RECEIVED PT FROM NIGHTSHIFT RN IN STABLE CONDITION. PT ON MECHANICAL VENT VIA ETT, SEDATED, AND SATING WELL AT 98%. BLOOD FROM PULLED TOOTH NOTED AROUND PT'S MOUTH. NO SIGNS OF ACUTE DISTRESS NOTED AT THIS TIME. LIRIANO CATHETER NOTED TO BE INTACT AND DRAINING CLOUDY ORANGE COLORED URINE WITH SLIGHT HEMATURIA AND SEDIMENTS. ORAL GASTRIC TUBE NOTED AND CLAMPED FOR MEDICATION ADMINISTRATION USE. MULTIPLE IVS NOTED. ONE TO PT'S RIGHT FA 20G HL, ANOTHER TO PT'S LEFT AC 20G HL, AND A LEFT UPPER ARM MIDLINE INFUSING DIPRIVAN @70ML/HR. PT TOLERATING INFUSION WELL. BP NOTED TO BE ON THE LOWER SIDE (SBP IN THE 80S). SALOMON TIER IN AT BEDSIDE AND MADE AWARE). PER TIER IN "PRN LEVO DRIP WILL BE ORDERED TO INCREASE BP". RT AT BEDSIDE AND CHANGED PT'S PEEP TO 0. BILATERAL. SOFT RESTRAINTS NOTED PT WAS NOTED TO BE INTERFERING WITH INVASIVE LINES. GOOD PERIPHERAL PULSES NOTED ALONG WITH CAP REFILL. BED IN LOW LOCKED POSITION, SIDE RAILS UP X2, CALL LIGHT WITHIN REACH, BED ALARM ON. WILL CONTINUE TO MONITOR
[2018-05-01] MEDS: Folic acid 1 MG in IV D5W 50 ML IV SCH (08:16)
[2018-05-01] MEDS: Z GUARD REMEDY 2 OZ OINT TP SCH (08:17)
[2018-05-01] MEDS ORDERED: NOREPINEPHRINE 8 MG in IV D5W 500 ML IV PRN (08:30)
--- NOTE | 2018-05-01 08:42 | NUR ---
ICU NOTES: ABG RESULTS RESULTS OF PT'S ABG REVIEWED WITH DR. DELUCA. NO NEW ORDERS GIVEN AT THIS TIME
[2018-05-01 08:48] LABS: ABG BASE EXCESS -5.9 mmol/L; ABG OXYGEN SATURATION 96.5 % (92.0-98.5); ABG PCO2 38.8 mmHg (35.0-45.0); ABG PH 7.322 (7.350-7.450); ABG PO2 101.7 mmHg (75.0-100.0); AaDO2 66.6 mmHg; COHb 0.8 % (0.5-1.5); MetHb 0.6 % (0.0-1.5); O2Hb 95.1 % (94.0-97.0); PEEP,BG 0 cm H2O; SITE, ABG Right Radial; VT, ABG 550 mL
[2018-05-01] MEDS: PANTOPRAZOLE 40 MG VIAL IV SCH ×2 (08:50→17:21)
[2018-05-01] MEDS: Thiamine 100 MG in IV D5W 50 ML IV SCH (08:50)
--- NOTE | 2018-05-01 11:21 | NUR ---
ICU NOTES: NEURO CONSULT NEURO FEEDER CATCHER JAI AT BEDSIDE. FEEDER CATCHER UPDATED ON PT'S CURRENT CONDITION AND VITALS. PER FEEDER CATCHER "PT MAY BE OFF RESTRAINTS AT THIS TIME, AND HEAD CT MAY BE HELD UNTIL HE IS MEDICALLY STABLE"
[2018-05-01] MEDS ORDERED: JEVITY 1.2 CAL 1,000 ML BOTTLE NG PRN (12:30)
--- NOTE | 2018-05-01 14:00 | NUR ---
RT ET TUBE PULLED OUT FROM 26CM TO 24CM AT THE LIP LINE. INSIDE TESTER CUFF PRESSURE NOTED. EQUAL BILATERAL BREATHE SOUNDS AND CHEST RISE. NO RESPIRATORY DISTRESS NOTED AT THIS TIME, WILL CONTINUE TO MONITOR.
--- NOTE | 2018-05-01 14:26 | NUR ---
ICU NOTES: BP MANAGEMENT PT HAS SUSTAINED A SBP OF THE MID TO HIGH 80S FOR THE PAST FEW HRS. DR. DELUCA ON UNIT AT MADE AWARE. PER MD "KEEP PT'S PEEP AT 0, INFUSE 1L NS @ 75ML/HR IF SBP IS <85, AND BEGIN LEVO DRIP IF SBP IS <80." WILL CARRY OUT ORDERS ACCORDINGLY
--- NOTE | 2018-05-01 16:46 | NUR ---
PRINT PRODUCTION COORDINATOR NOTES: PICC LINE INSERTION CONSENT OBTAINED FROM PT'S MOTHER FOR PICC LINE INSERTIONS. TRIPLE LUMEN PICC SUCCESSFULLY INSERTED IN PT'S RIGHT UPPER ARM. PLACEMENT CONFIRMED VIA CXR.
--- NOTE | 2018-05-01 18:49 | NUR ---
CLERICAL PROOFREADER CLOSING NOTES PT REMAINS STABLE. ALL NEEDS ANTICIPATED FOR AND MET DURING SHIFT. ALL DUE MEDS GIVEN. PRN CARE RENDERED. PT REPOSITIONED AND TURNED PER HOSPITAL PROTOCOL. ICS REMAIN PATENT AND INTACT. PT CONTINUE TO TOLERATING ZOSYN AND PROPOFOL INFUSION WELL. LIRIANO CATHETER REMAINS PATENT AND INTACT. OGT REMAINS PATENT. PT TOLERATING GTUBE FEEDINGS WELL AT ORDERED RATE. SAFETY MEASURES REMAIN IN PLACE. WILL ENDORSE TO NIGHTSHIFT RN FOR DAVIAN
--- NOTE | 2018-05-01 19:45 | NUR ---
[facility] called that platelet is not available.Still to order stat from [facility] and will take 4 hrs.
--- NOTE | 2018-05-01 20:00 | NUR ---
Received patient sedated on Diprivan gtt at 50 mcg/min infusing to MAYRA Midline site intact. Maintained on full vent support on AC mode tolerating well .SPO2 97%.With bloody secretions orally suctioned PRN.Gauze dressing in place in mouth saturated with blood and with blood clot. Oral care done.OGT feeding in progress no residual noted.HOB elevated.FC to gravity with bucky urine.No acute distress noted.Turned and repositioned.
--- NOTE | 2018-05-01 20:23 | NUR ---
RT NOTE PATIENT RECEIVED ON AC 12, 550, 30%, NO PEEP. ET TUBE 7.5 @ 24 LIP LINE. ET TUBE IS PATENT AND SECURED. CUFF CHECKED VIA HANDLE SEWER. AMBU BAG @ HOB. VENT PLUGGED INTO RED OUTLET. PATIENT IS ORALLY INTUBATED AND RESPONDS TO STIMULI WHEN SX'D. MODERATE THICK BLOODY SECRETIONS NOTED. PATIENT BLEEDING FROM MOUTH, ORAL CARE DONE. NURSE, JOSSELINE, IS AWARE. ALARMS ON AND AUDIBLE. NO DISTRESS NOTED, WILL MONITOR CLOSELY T/O SHIFT. Addendum: 05/01/18 at 2026 by CELIO MAR RT Amended: Links added.
[2018-05-01] MEDS ORDERED: GELATIN SPONGE,ABSORBABLE 1 SPONGE SPONGE TP ONE (20:58)
[2018-05-02] VITALS (104 sets, daily range): BP systolic 66–182; BP diastolic 29–89
[2018-05-02] MEDS: PROPOFOL 100 ML IV PRN ×7 (00:07→21:35)
--- NOTE | 2018-05-02 00:10 | NUR ---
Patient BP drop down to SBP 79 x 2 readings.Levophed gtt started at 1 mcg and will titrate accordingly.
[2018-05-02] MEDS: NOREPINEPHRINE 8 MG in IV D5W 500 ML IV PRN ×2 (00:11→17:04)
[2018-05-02] MEDS: LACTULOSE 10 G/15 ML UDC (PYXIS) PO SCH ×5 (00:11→23:41)
--- NOTE | 2018-05-02 01:00 | NUR ---
Platelet 1 unit transfused without adverse reaction .VS stable.
[2018-05-02] MEDS: PIPERACILLIN /TAZOBACTAM 3.375 G in IV D5W 100 ML IV SCH ×3 (02:00→17:04)
--- NOTE | 2018-05-02 02:00 | NUR ---
Patient still bleeding orally with gauze dressing in place.One tooth bottom front came off during suctioning.Continue monitoring.
--- NOTE | 2018-05-02 03:31 | NUR ---
RT NOTE INCREASED FI02 TO 40% DUE TO LOW SATURATION. SP02 INCREASED FROM 93% TO 97%. PATIENT TOLERATING WELL. ORAL CARE DONE, BLEEDING NOTED FROM MOUTH. NURSE, JOSSELINE, NOTIFIED AND IS AWARE.
[2018-05-02] MEDS ORDERED: ACETAMINOPHEN 650 MG/20.3 ML UDC ONE (04:18)
[2018-05-02] MEDS ORDERED: ACETAMINOPHEN 650 MG/20.3 ML UDC NG PRN (04:30)
--- NOTE | 2018-05-02 04:30 | NUR ---
Patient febrile temp 101.7 Tylenol administered per order.Continues cooling measures done.
[2018-05-02 05:01] LABS: CALCIUM, SERUM 7.6 mg/dL (8.5-10.1); CREATININE 3.3 mg/dL (0.6-1.3); POTASSIUM 3.4 mmol/L (3.5-5.1)
--- NOTE | 2018-05-02 05:48 | NUR ---
RT NOTE PATIENT NOTED WITH LARGE AMOUNTS OF BLOOD FROM MOUTH T/O SHIFT. ORAL CARE DONE. SX PERFORMED, MODERATE THICK BLOODY SECRETIONS NOTED. NURSE, PEPPER MANJARREZ. ROSY/MAGDALENA CHANGED END OF SHIFT. PATIENT TOLERATING 40% WELL. WILL ENDORSE PATIENT CONDITION TO NEXT SHIFT.
[2018-05-02 05:57] LABS: HEMATOCRIT 22 % (39-51); HEMOGLOBIN 7.6 g/dL (13.5-17.5); MEAN CORPUSCULAR HGB CONC 34 g/dl (31.0-36.0); MEAN CORPUSCULAR VOLUME 104 fL (80-96); RED BLOOD CELL COUNT(AUTO) 2.13 MIL/uL (4.5-6.0)
[2018-05-02 05:58] LABS: LYMPHOCYTES % (AUTO) 25.6 % (20.0-44.0); MONOCYTES % (AUTO) 10.5 % (2.0-12.0); NEUTROPHILS % (AUTO) 55.9 % (43.0-81.0)
[2018-05-02 06:00] LABS: PLATELET COUNT (AUTO) 49 /CMM (150-450); WHITE BLOOD COUNT (AUTO) 1.2 K/uL (4.3-11.0)
--- NOTE | 2018-05-02 06:58 | NUR ---
Patient remains sedated of Diprivan 50 mcg.Hemodynamically unstable with Levophed infusing at 10 mcg/min via MARY JO PICC Line and site intact.Latest temp 101.1 bed bath and cooling blanket applied.Patient with large loose BM X 2.Still bleeding from mouth with blood clots.Patient AM labs resulted WBC 1.2,Platelet 49.Paged Dr.Sam Flynn for orders.No response yet. Report given to Kevin Eddy RN for continuity of care.
[2018-05-02 06:59] LABS: D-DIMER 6.4 mg/L(FEU (0.17-0.50)
--- NOTE | 2018-05-02 08:56 | NUR ---
received pt from metrology specialist, sedated on Diprivan at 50mcg, SR, receiving levo at 12mcg, on the vent, lungs congested, edema, NG to feeding tolerates well, f/c OK output, bloody output from the mouth, jaundice, liver failure, v/s stable, no pain, pt turned and repositioned.
[2018-05-02] MEDS: PANTOPRAZOLE 40 MG VIAL IV SCH ×2 (09:24→16:49)
[2018-05-02] MEDS: Thiamine 100 MG in IV D5W 50 ML IV SCH (09:24)
[2018-05-02] MEDS: Folic acid 1 MG in IV D5W 50 ML IV SCH (09:24)
[2018-05-02] MEDS: Z GUARD REMEDY 2 OZ OINT TP SCH (09:25)
[2018-05-02 09:54] LABS: BAND % (MANUAL) 3 % (0.0-5.0); LYMPHOCYTES % (MANUAL) 28 % (16-48); MONOCYTES % (MANUAL) 9 % (0-11.0); NEUTROPHILS % (MANUAL) 60 (42-76)
--- NOTE | 2018-05-02 10:28 | NUR ---
FOR CT HEAD, PT STILL UNSTABLE PER RN
[2018-05-02] MEDS ORDERED: POTASSIUM CL. PREMIX PERIPHER. 50 ML IV SCH (11:00)
--- NOTE | 2018-05-02 12:00 | NUR ---
pt is resting the bed, still bleeding from the mouth, v/s stable, no pain, pt turned and repositioned q2hrs, family at the bedside.
[2018-05-02] MEDS: ALBUMIN 25% 25 GM in PREMIX 1 EA IV SCH ×3 (12:16→23:00)
[2018-05-02] MEDS: IV NS 0.9% 1,000 ML IV PRN (12:23)
[2018-05-02 12:45] LABS: BILIRUBIN,DIRECT 12.2 mg/dL (0.0-0.2); BILIRUBIN,TOTAL 14.5 mg/dL (0.2-1.0); TOTAL PROTEIN, SERUM 6.5 g/dL (6.4-8.2)
[2018-05-02 13:07] LABS: ALBUMIN 1.3 g/dL (3.4-5.0)
[2018-05-02 16:00] LABS: CREATININE, URINE 169.2 MG/DL (30.0-125.0)
--- NOTE | 2018-05-02 16:00 | NUR ---
pt sedated on Diprivan at 30mcg, SR, on levo at 9mcg, some urine output, tolerates feeding, bleeding from the mouth, v/s stable, no pain, pt cleaned, changed and repositioned q2hrs.
[2018-05-02] MEDS ORDERED: PANTOPRAZOLE 80 MG in IV NS 0.9% 100 ML IV ONE (18:00)
[2018-05-02] MEDS ORDERED: OCTREOTIDE 50 MCG in IV NS 0.9% 50 ML IV ONE (18:00)
[2018-05-02] MEDS ORDERED: MEROPENEM 500 MG in IV NS 0.9% 50 ML IV SCH (18:00)
[2018-05-02] MEDS ORDERED: TBO-FILGRASTIM 480 MCG/0.8 ML ML SQ SCH (18:00)
--- NOTE | 2018-05-02 18:09 | NUR ---
RT END OF THE SHIFT REPORT; PT REC. 0700 AM SHIFT. PT. 43 Y OLD MALE ORALLY INTUBATED ETT# 7.5@ 24 CM SECURED AT THE LIP. REMAIN STABLE. NOT SEDATED PT. TOLERATING VENT SETTINGS. ORALLY BLEEDING DUE TO DENTAL REMOVAL AND SUX'D FOR SMALL AMT OF WHITE SECRETIONS. EQUAL CHEST RISE NOTED. CUFF VIDEO ENGINEER. VENT ALARMS SET AND AUDIBLE. AMBU BAG AT BEDSIDE. VENT PLUGGED INTO RED OUTLET. WILL CONTINUE TO MONITOR. HME CHANGED. REPORT WILL PASS TO PM SHIFT. Addendum: 05/02/18 at 1810 by PAUL SOOD RT Amended: Links added.
[2018-05-02] MEDS ORDERED: FEE PK DOSING 1 MIN EA MC ONE (18:45)
[2018-05-02] MEDS: PANTOPRAZOLE 80 MG in IV NS 0.9% 500 ML IV PRN (19:32)
[2018-05-02] MEDS: OCTREOTIDE 1,250 MCG in IV NS 0.9% 247.5 ML IV PRN (19:36)
[2018-05-02] MEDS: MEROPENEM 500 MG in IV NS 0.9% 100 ML IV SCH (19:56)
--- NOTE | 2018-05-02 20:00 | NUR ---
Received patient sedated with Diprivan gtt at 30 mcg and intubated on full vent support. Patient noted with moderate bleeding orally and via ETT. Secretions suctioned and oral care done.SR per tele monitoring with Levophed gtt infusing at 5 mcg and will titrate accordingly. OGT to LWIS no drainage noted.NPO with ivf infusing.FC to gravity drainage with dark bucky urine.Turned and repositioned.No acute distress noted.
[2018-05-02] MEDS: VANCOMYCIN 1.25 GM in IV D5W 500 ML IV SCH (20:25)
[2018-05-03] VITALS (105 sets, daily range): BP systolic 81–117; BP diastolic 37–56
--- NOTE | 2018-05-03 | NUR ---
Patient continues to bleed orally with moderate blood clots.Oral care done. VS stable.No distress noted.
[2018-05-03] MEDS: IV NS 0.9% 1,000 ML IV PRN ×2 (00:47→15:36)
[2018-05-03] MEDS: PROPOFOL 100 ML IV PRN ×6 (01:59→23:02)
[2018-05-03] MEDS ORDERED: PANTOPRAZOLE 40 MG VIAL ONE (03:59)
[2018-05-03] MEDS: PANTOPRAZOLE 80 MG in IV NS 0.9% 500 ML IV PRN (04:04)
[2018-05-03] MEDS: ALBUMIN 25% 25 GM in PREMIX 1 EA IV SCH (04:45)
[2018-05-03 05:12] LABS: CALCIUM, SERUM 7.1 mg/dL (8.5-10.1); CREATININE 4.2 mg/dL (0.6-1.3); POTASSIUM 4.1 mmol/L (3.5-5.1)
[2018-05-03 05:22] LABS: BASOPHILS # (AUTO) 0.2 /CMM (0.0-0.2); BASOPHILS % (AUTO) 3.4 % (0.0-2.0); EOSINOPHILS % (AUTO) 2.7 % (0.0-6.0); LYMPHOCYTES % (AUTO) 20.2 % (20.0-44.0); MEAN CORPUSCULAR HGB CONC 35 g/dl (31.0-36.0); MEAN CORPUSCULAR VOLUME 104 fL (80-96); MONOCYTES # (AUTO) 1.3 /CMM (0.1-1.30); MONOCYTES % (AUTO) 26.8 % (2.0-12.0); NEUTROPHILS # (AUTO) 2.3 /CMM (1.8-8.9); NEUTROPHILS % (AUTO) 46.9 % (43.0-81.0); PLATELET COUNT (AUTO) 54 /CMM (150-450)
[2018-05-03 05:45] LABS: RED BLOOD CELL COUNT(AUTO) 1.46 MIL/uL (4.5-6.0)
[2018-05-03 05:47] LABS: HEMATOCRIT 15 % (39-51); HEMOGLOBIN 5.3 g/dL (13.5-17.5)
[2018-05-03 06:12] LABS: EOSINOPHILS % (MANUAL) 1 % (0-4); LYMPHOCYTES % (MANUAL) 24 % (16-48); MONOCYTES % (MANUAL) 17 % (0-11.0); NEUTROPHILS % (MANUAL) 58 (42-76)
--- NOTE | 2018-05-03 06:20 | NUR ---
Patient continues to bleed orally and via ETT and many big blood clots.Mouth care done and secretions suctioned.Latest H/H 5..Dr.Sam Suarez notified with orders received and carried out.2 UNITS PRBC ordered.
[2018-05-03 06:30] LABS: D-DIMER 20.6 mg/L(FEU (0.17-0.50)
[2018-05-03] MEDS: LACTULOSE 10 G/15 ML UDC (PYXIS) PO SCH ×3 (06:32→17:11)
[2018-05-03] MEDS: MEROPENEM 500 MG in IV NS 0.9% 100 ML IV SCH ×2 (06:33→17:12)
--- NOTE | 2018-05-03 07:10 | NUR ---
RN INITIAL NOTES: Rec'd pt on bed, not in any distress. On MV via ETT, sating at 100% but noted active bleeding on pt's mouth w/ gauze packing. On telemonitor, SR 82bpm. Has OGT on LIS w/ sanguineous output noted from tubing, NPO except meds. Has IV line access patent & intact w/ no s/sx of infection/infiltration: MARY JO PICC line w/ Protonix 50cc/hr, Sandostatin x 10cc/hr & NS x 75 cc/hr, MAYRA Midline w/ Diprivan x 30 mcg & Levo Drip (SD) x 8 mcg, all infusing well. FC draining to BSB w/ greenish UOP. Safety precaution in place. Per report, pt Hgb 5.3 & was relayed to , awaiting BT orders.
--- NOTE | 2018-05-03 07:30 | NUR ---
Pt's bleeding from pt's mouth noted to be coming from pt gums (s/p tooth extraction). Asked Dr. Gray if okay to put surgicel & agreed to order for it. Surgicel x3 to apply on pt's gums.
[2018-05-03] MEDS ORDERED: methylPREDNISolone SOD SUCC 40 MG/ML VIAL IV SCH (08:00)
[2018-05-03] MEDS ORDERED: CELLULOSE,OXIDIZED 1 EA PACK MC STA (08:15)
[2018-05-03] MEDS: MIDODRINE HCL (5MG) 5 MG TABLET PO SCH ×3 (08:26→17:11)
[2018-05-03] MEDS: RIFAXIMIN 550 MG TABLET PO SCH ×2 (08:26→17:11)
[2018-05-03] MEDS: Z GUARD REMEDY 2 OZ OINT TP SCH (08:27)
[2018-05-03] MEDS: Thiamine 100 MG in IV D5W 50 ML IV SCH (09:09)
[2018-05-03] MEDS: Folic acid 1 MG in IV D5W 50 ML IV SCH (09:09)
--- NOTE | 2018-05-03 11:45 | NUR ---
Pt had a brief episode of desaturation w/ bradycardia HR 54bpm then went back to HR 80's & O2 sat went up to 100%. Peripheral pulses were strong & palpable. Dr. Martinez at bedside. Closely monitored.
--- NOTE | 2018-05-03 12:00 | NUR ---
Dr. Martinez was able to talk to the pt's family (mother & sister) at bedside regarding pt's current status, POC & prognosis w/ psychological operations. As discussed, family wishes pt to be DNR/DNI, no more added pressors & no more blood products. Concerns/issues were addressed by Dr. Martinez. Family verbalized understanding.
[2018-05-03] MEDS: NOREPINEPHRINE 16 MG in IV D5W 500 ML IV PRN ×2 (12:16→17:23)
--- NOTE | 2018-05-03 14:36 | NUR ---
Pt seen & examined by Dr. Dooley & updated about pt status.
--- NOTE | 2018-05-03 15:54 | NUR ---
Pt seen & examined by CASSANDRA Nolan w/ orders to change Protonix Drip to Protonix 40 mg IV BID then continue Sandostatin Drip for now.
[2018-05-03] MEDS: PANTOPRAZOLE 40 MG VIAL IV SCH (17:11)
[2018-05-03] MEDS: OCTREOTIDE 1,250 MCG in IV NS 0.9% 247.5 ML IV PRN (17:23)
--- NOTE | 2018-05-03 18:20 | NUR ---
CASSANDRA Potts updated about pt status.
--- NOTE | 2018-05-03 18:27 | NUR ---
RN CLOSING NOTES: Pt is obtunded, not in any distress. Pt tolerating MV settings via ETT. Still SR on telemonitor. OGT kept patent & intact connected on LIS w/ sanguineous output, kept NPO except meds. IV line access kept patent & intact w/ no s/sx of infection/infiltration: MARY JO PICC line w/ Sandostatin x 10cc/hr & NS x 75 cc/hr, MAYRA Midline w/ Diprivan x 30 mcg & Levo Drip (DD) x 4 mcg, all infusing well. FC draining to BSB w/ greenish UOP. Bleeding from mouth stop, surgicel kept on pt's gum. Safety precaution in place at all times. Kept well rested. Needs attended. Bed kept low & in locked pos. Will endorse to PM RN for DAVIAN.
--- NOTE | 2018-05-03 19:00 | NUR ---
RECEIVED PT IN NO ACUTE DISTRESS IN BED. PT IS SEDATED WITH DIPRIVAN. PT IS ON MECHANICAL VENT VIA ETT. ETT IS CLEAN DRY AND INTACT. ETT IS 7.5/25 AT THE LIP. PT TOLERATING VENT SETTING WELL @ AC 12, TV 550, FIO2 40%, PEEP 5. PT IS ON TELE WITH SR ON THE MONITOR. PT HAS OG TUBE THAT IS CLEAN DRY INTACT AND ON LOW INTERMITTENT SUCTIONING. PT HAS F/C THAT IS CLEAN DRY INTACT AND PATENT WITH DARK COLORED URINE. PT HAS MAYRA MIDLINE THAT IS CLEAN DRY INTACT AND PATENT WITH LEVO @ 4MCG AND DIPRIVAN @ 30 MCG. PT HAS RIGHT UPPER ARM TLC PICC THAT IS CLEAN DRY INTACT AND PATENT WITH SANDOSTATIN @ 50 MCG AND NS @ 75ML/HR. BED IN LOW LOCK POSITION WITH RIALS UP X 2. CALL LIGHT WITHIN REACH AND ALL SAFETY MEASURES ENSURED AND CARRIED OUT. WILL CONTINUE TO MONITOR PT.
--- NOTE | 2018-05-03 20:25 | NUR ---
RECEIVED PT INTUBATED 7.5 ETT SECURED AT 24CM AT THE LIP. PT TOLERATING VENT SETTINGS. SX'D FOR MOD AMT OF TINGED SECRETIONS. VENT ALARMS SET AND AUDIBLE. VENT PLUGGED INTO RED OUTLET. WILL CONTINUE TO MONITOR. Addendum: 05/03/18 at 2025 by CAMI CEDEÑO RT Amended: Links added.
[2018-05-04] VITALS (112 sets, daily range): BP systolic 76–134; BP diastolic 32–76
[2018-05-04] MEDS: LACTULOSE 10 G/15 ML UDC (PYXIS) PO SCH ×5 (00:27→23:22)
[2018-05-04] MEDS: PROPOFOL 100 ML IV PRN ×5 (03:29→22:17)
[2018-05-04 04:35] LABS: BASOPHILS # (AUTO) 0.3 /CMM (0.0-0.2); BASOPHILS % (AUTO) 2.6 % (0.0-2.0); LYMPHOCYTES # (AUTO) 1.6 /CMM (0.8-4.8); LYMPHOCYTES % (AUTO) 14.8 % (20.0-44.0); MEAN CORPUSCULAR HGB CONC 34 g/dl (31.0-36.0); MEAN CORPUSCULAR VOLUME 99 fL (80-96); MONOCYTES # (AUTO) 2.1 /CMM (0.1-1.30); MONOCYTES % (AUTO) 19.6 % (2.0-12.0); NEUTROPHILS # (AUTO) 6.3 /CMM (1.8-8.9); PLATELET COUNT (AUTO) 72 /CMM (150-450); WHITE BLOOD COUNT (AUTO) 10.6 K/uL (4.3-11.0)
[2018-05-04 04:47] LABS: CALCIUM, SERUM 7.5 mg/dL (8.5-10.1); CREATININE 5.4 mg/dL (0.6-1.3); POTASSIUM 3.8 mmol/L (3.5-5.1)
[2018-05-04 04:49] LABS: HEMOGLOBIN 6.1 g/dL (13.5-17.5); RED BLOOD CELL COUNT(AUTO) 1.79 MIL/uL (4.5-6.0)
[2018-05-04 04:50] LABS: HEMATOCRIT 18 % (39-51)
[2018-05-04 05:01] LABS: EOSINOPHILS % (MANUAL) 4 % (0-4); LYMPHOCYTES % (MANUAL) 19 % (16-48); MONOCYTES % (MANUAL) 16 % (0-11.0); NEUTROPHILS % (MANUAL) 61 (42-76)
[2018-05-04 05:13] LABS: D-DIMER 12.7 mg/L(FEU (0.17-0.50)
[2018-05-04] MEDS: IV NS 0.9% 1,000 ML IV PRN ×2 (05:20→18:04)
[2018-05-04] MEDS: MEROPENEM 500 MG in IV NS 0.9% 100 ML IV SCH ×2 (05:58→17:03)
[2018-05-04] MEDS: PANTOPRAZOLE 40 MG VIAL IV SCH ×2 (05:58→17:02)
--- NOTE | 2018-05-04 06:30 | NUR ---
RECEIVED CALL FROM PT'S MOTHER WITH [employer]ER[employer] AND WILL REFER HER TO THE AM MEDICAL STAFF FOR FURTHER EVALUATION.
--- NOTE | 2018-05-04 07:20 | NUR ---
RN INITIAL NOTES RECEIVED PT INTUBATED, ON VENT. NO RESPIRATORY DISTRESS NOTED. NO SOB NOTED. NO SIGNS OF PAIN NOTED. PT SEDATED, ON DIPRIVAN AT 30MCG/KG/MIN. MARY JO PICC AND MAYRA MIDLINE IN PLACE. ON LEVO AT 4MCG/MIN, WILL MONITOR BP. ON SANDOSTATIN AT 50MCG/HR. IVF INFUSING. OG IN PLACE, CONNECTED TO LOW INTERMITTENT SUCTION. FC IN PLACE. NO HEMATURIA NOTED. BLE ELEVATED. WILL MONITOR.
[2018-05-04] MEDS: MIDODRINE HCL (5MG) 5 MG TABLET PO SCH ×3 (08:11→16:25)
[2018-05-04] MEDS: RIFAXIMIN 550 MG TABLET PO SCH ×2 (08:11→16:25)
[2018-05-04] MEDS: FOLIC ACID 1 MG TABLET GT SCH (08:11)
[2018-05-04] MEDS: THIAMINE HCL 100 MG TABLET GT SCH (08:12)
[2018-05-04] MEDS: VANCOMYCIN 1.25 GM in IV D5W 500 ML IV SCH (08:12)
[2018-05-04] MEDS: Z GUARD REMEDY 2 OZ OINT TP SCH (08:20)
--- NOTE | 2018-05-04 09:00 | NUR ---
RN NOTES SEEN AND EXAMINED BY DR DELUCA. AWARE OF LAB VALUES: HGB 6.1. HCT 18, PLATELET 72. BUN 36, CREA 5.4. PT CODE STATUS CHANGED YESTERDAY TO DNR/DNI WITH NO ADDITIONAL PRESSORS AND NO BLOOD PRODUCT. PT ON DIPRIVAN. SEDATION VACATION DONE. PT DOESN'T FOLLOW COMMANDS. USES ABDOMINAL MUSCLE FOR BREATHING. WILL CLOSELY MONITOR. WILL RESTART DIPRIVAN NEEDED. WILL CLOSELY MONITOR
--- NOTE | 2018-05-04 14:00 | NUR ---
RN NOTES SEEN AND EXAMINED BY DR BLAKE. AWARE OF LATEST LAB VALUES: HGB 6.1,HCT 18, PLATELET 72 AND CXR RESULT. WILL GIVE PT 1 UNIT OF PRBC. PT REMAINS INTUBATED, ON VENT. PT SEDATED, ON DIPRIVAN. IVF INFUSING. PT ALSO ON SANDOSTATIN IV. WILL CLOSELY MONITOR.
[2018-05-04] MEDS ORDERED: NTG 50 MG/D5W250 ML BOTTL 250 ML IV PRN (16:30)
[2018-05-04] MEDS: OCTREOTIDE 1,250 MCG in IV NS 0.9% 247.5 ML IV PRN (17:02)
[2018-05-04] MEDS: NOREPINEPHRINE 16 MG in IV D5W 500 ML IV PRN (17:03)
[2018-05-04] MEDS ORDERED: PHYTONADIONE INJ 10 MG/1 ML AMPUL SQ ONE (18:00)
--- NOTE | 2018-05-04 18:05 | NUR ---
RT END OF THE SHIFT REPORT; PT REC. 0700 AM SHIFT. FAMILY MEMBERS AT THE BEDSIDE T/O DAY . PT. 43 Y OLD MALE ORALLY INTUBATED ETT# 7.5@ 24 CM SECURED AT THE LIP. REMAIN STABLE. NOT CHANGES T/O DAY PT. TOLERATING VENT SETTINGS. PT. STILL BLEEDING ORALLY AND MINIMAL SUX'D PRN FOR REDDISH MODERATE AMT OF SECRETIONS. EQUAL CHEST RISE NOTED. CUFF DISPATCHER MAINTENANCE. VENT ALARMS SET AND AUDIBLE. AMBU BAG AT BEDSIDE. VENT PLUGGED INTO RED OUTLET. WILL CONTINUE TO MONITOR. HME CHANGED. REPORT WILL PASS TO PM SHIFT. Addendum: 05/04/18 at 1807 by PAUL SOOD RT Amended: Links added.
--- NOTE | 2018-05-04 18:35 | NUR ---
RN CLOSING NOTES NO SIGNIFICANT CHANGE NOTED. PT REMAINS INTUBATED, ON VENT. NO RESPIRATORY DISTRESS NOTED. AIRWAY KEPT PATENT. KEPT CLEAN AND COMFORTABLE. REPOSITIONED Q2. TRANSFUSED 1 UNIT OF PRBC. CRYO 10 UNITS TO BE GIVEN. AWAITING FOR BLOOD BANK. PIPER ENDORSE FOR CONTINUITY OF CARE.
--- NOTE | 2018-05-04 20:00 | NUR ---
GIZZARD PEELER - NOTES - RECEIVED PT INTUBATED, ON VENT. NO RESPIRATORY DISTRESS NOTED. NO SOB NOTED. NO SIGNS OF PAIN NOTED. PT SEDATED, ON DIPRIVAN AT 30 MCG/KG/MIN. MARY JO PICC AND MAYRA MIDLINE IN PLACE. ON LEVO AT 4MCG/MIN, WILL MONITOR BP. ON SANDOSTATIN AT 50MCG/HR. IVF INFUSING. OG IN PLACE, CONNECTED TO LOW INTERMITTENT SUCTION. FC IN PLACE. NO HEMATURIA NOTED. BLE ELEVATED. WILL MONITOR.
--- NOTE | 2018-05-04 22:07 | NUR ---
RECEIVED PT INTUBATED 7.5 ETT SECURED AT 24CM AT THE LIP. PT TOLERATING VENT SETTINGS. SX'D FOR MOD AMT OF TINGED SECRETIONS. VENT ALARMS SET AND AUDIBLE. VENT PLUGGED INTO RED OUTLET. WILL CONTINUE TO MONITOR. Addendum: 05/04/18 at 2207 by CAMI CEDEÑO RT Amended: Links added.
[2018-05-05] VITALS (106 sets, daily range): BP systolic 71–128; BP diastolic 42–73
[2018-05-05] MEDS: PROPOFOL 100 ML IV PRN ×5 (03:38→21:48)
[2018-05-05 04:39] LABS: BASOPHILS # (AUTO) 0.3 /CMM (0.0-0.2); BASOPHILS % (AUTO) 2.1 % (0.0-2.0); EOSINOPHILS % (AUTO) 2.7 % (0.0-6.0); LYMPHOCYTES # (AUTO) 1.4 /CMM (0.8-4.8); MEAN CORPUSCULAR HGB CONC 34 g/dl (31.0-36.0); MEAN CORPUSCULAR VOLUME 99 fL (80-96); MONOCYTES # (AUTO) 2.1 /CMM (0.1-1.30); MONOCYTES % (AUTO) 15.2 % (2.0-12.0); NEUTROPHILS # (AUTO) 9.8 /CMM (1.8-8.9); PLATELET COUNT (AUTO) 83 /CMM (150-450); RED BLOOD CELL COUNT(AUTO) 2.01 MIL/uL (4.5-6.0)
[2018-05-05 05:01] LABS: CALCIUM, SERUM 7.5 mg/dL (8.5-10.1); CREATININE 5.4 mg/dL (0.6-1.3); MAGNESIUM 2.1 mg/dL (1.8-2.4); PHOSPHORUS 7.6 mg/dL (2.5-4.9); POTASSIUM 4.1 mmol/L (3.5-5.1)
[2018-05-05] MEDS: PANTOPRAZOLE 40 MG VIAL IV SCH ×2 (05:12→17:14)
[2018-05-05] MEDS: LACTULOSE 10 G/15 ML UDC (PYXIS) PO SCH ×4 (05:12→23:21)
[2018-05-05] MEDS: MEROPENEM 500 MG in IV NS 0.9% 100 ML IV SCH ×2 (05:13→17:16)
[2018-05-05 05:29] LABS: HEMATOCRIT 20 % (39-51); HEMOGLOBIN 6.7 g/dL (13.5-17.5)
[2018-05-05 05:44] LABS: EOSINOPHILS % (MANUAL) 2 % (0-4); LYMPHOCYTES % (MANUAL) 9 % (16-48); MONOCYTES % (MANUAL) 2 % (0-11.0); NEUTROPHILS % (MANUAL) 87 (42-76)
--- NOTE | 2018-05-05 07:05 | NUR ---
RN NOTES RECEIVED PT ON BED, INTUBATED, ON VENT. TOLERATING CURRENT VENT SETTING WELL, INTUBATED, AND SEDATED, NO RESPIRATORY DISTRESS NOTED. ON DIPRIVAN AT 30 MCG/KG/MIN. MARY JO PICC AND MAYRA MIDLINE SITES CLEAN,DRY AND INTACT. LEVO AT 4MCG/MIN AND SANDOSTATIN AT 50MCG/HR RUNNING , IVF NS AT 75CC /HR INFUSING. OG IN PLACE AND CONNECTED TO LOW INTERMITTENT SUCTION , LIRIANO DRANING TO GRAVITY , DARK ALFREDO COLOR URINE NOTED, SR UP x3, CALL LIGHT WITHIN EASY REACH, BED LOCKED AND IN LOWEST POSITION, CONTINUE TO MONITOR .
--- NOTE | 2018-05-05 08:26 | NUR ---
RN NOTES TRANSFUSION OF ONE UNIT OF PRBC STARTED , VSS STABLE CONTINUE TO MONITOR .
[2018-05-05] MEDS: IV NS 0.9% 1,000 ML IV PRN ×2 (08:33→23:36)
[2018-05-05] MEDS: MIDODRINE HCL (5MG) 5 MG TABLET PO SCH ×3 (08:36→17:15)
[2018-05-05] MEDS: THIAMINE HCL 100 MG TABLET GT SCH (08:37)
[2018-05-05] MEDS: RIFAXIMIN 550 MG TABLET PO SCH ×2 (08:37→17:14)
[2018-05-05] MEDS: FOLIC ACID 1 MG TABLET GT SCH (08:38)
[2018-05-05] MEDS: Z GUARD REMEDY 2 OZ OINT TP SCH (08:40)
--- NOTE | 2018-05-05 11:33 | NUR ---
RN NOTES ONE UNIT OF PRBC COMPLETED, PT TOLERATED WELL, NO COMPLICATION NOTED.
--- NOTE | 2018-05-05 14:00 | NUR ---
RN NOTES SUPPORTIVE FAMILY AT THE BED SIDE, VSS STABLE , CONTINUE TO MONITOR.
[2018-05-05] MEDS: NOREPINEPHRINE 16 MG in IV D5W 500 ML IV PRN (15:01)
--- NOTE | 2018-05-05 17:00 | NUR ---
RN NOTES LEVO OFF AT THE TIME , BP STABLE , CONTINUE TO MONITOR.
[2018-05-05] MEDS: OCTREOTIDE 1,250 MCG in IV NS 0.9% 247.5 ML IV PRN (18:03)
--- NOTE | 2018-05-05 18:34 | NUR ---
RN NOTES NO DISTRESS NOTED, PT SEDATED, INTUBATED ,LEVO GTT STILL OFF , BLOOD PRESSURE STABLE , NO SIGNIFICANT CHANGES NOTED ON THIS SHIFT , WILL ENDOSE TO RACKMAN NURSE FOR CONTINUITY OF CARE
[2018-05-05 19:29] LABS: D-DIMER 8.52 mg/L(FEU (0.17-0.50)
--- NOTE | 2018-05-05 20:00 | NUR ---
SURVEY SUPERVISOR - NOTES - RECEIVED PT INTUBATED, ON VENT. NO RESPIRATORY DISTRESS NOTED. NO SOB NOTED. NO SIGNS OF PAIN NOTED. PT SEDATED, ON DIPRIVAN AT 30 MCG/KG/MIN. MARY JO PICC AND MAYRA MIDLINE IN PLACE. ON SANDOSTATIN AT 50MCG/HR. IVF INFUSING. OG IN PLACE, CONNECTED TO LOW INTERMITTENT SUCTION. FC IN PLACE. NO HEMATURIA NOTED. BLE ELEVATED. WILL MONITOR.
--- NOTE | 2018-05-05 20:06 | NUR ---
RECEIVED PT INTUBATED 7.5 ETT SECURED AT 24CM AT THE LIP. PT TOLERATING VENT SETTINGS. SX'D FOR MOD AMT OF TINGED SECRETIONS. VENT ALARMS SET AND AUDIBLE. VENT PLUGGED INTO RED OUTLET. WILL CONTINUE TO MONITOR. Addendum: 05/05/18 at 2006 by CAMI CEDEÑO RT Amended: Links added.
[2018-05-05] MEDS: VANCOMYCIN 1.25 GM in IV D5W 500 ML IV SCH (20:27)
[2018-05-06] VITALS (68 sets, daily range): BP systolic 98–127; BP diastolic 50–68
[2018-05-06 04:55] LABS: BASOPHILS # (AUTO) 0.3 /CMM (0.0-0.2); BASOPHILS % (AUTO) 1.9 % (0.0-2.0); EOSINOPHILS % (AUTO) 2.7 % (0.0-6.0); HEMATOCRIT 23 % (39-51); HEMOGLOBIN 7.6 g/dL (13.5-17.5); LYMPHOCYTES # (AUTO) 1.4 /CMM (0.8-4.8); LYMPHOCYTES % (AUTO) 10.7 % (20.0-44.0); MEAN CORPUSCULAR HGB CONC 34 g/dl (31.0-36.0); MEAN CORPUSCULAR VOLUME 97 fL (80-96); MONOCYTES # (AUTO) 1.6 /CMM (0.1-1.30); MONOCYTES % (AUTO) 12.3 % (2.0-12.0); NEUTROPHILS # (AUTO) 9.7 /CMM (1.8-8.9); NEUTROPHILS % (AUTO) 72.4 % (43.0-81.0); PLATELET COUNT (AUTO) 87 /CMM (150-450); RED BLOOD CELL COUNT(AUTO) 2.35 MIL/uL (4.5-6.0); WHITE BLOOD COUNT (AUTO) 13.4 K/uL (4.3-11.0)
[2018-05-06 05:11] LABS: CALCIUM, SERUM 7.6 mg/dL (8.5-10.1); CREATININE 5.4 mg/dL (0.6-1.3); MAGNESIUM 2.3 mg/dL (1.8-2.4); PHOSPHORUS 7.1 mg/dL (2.5-4.9); POTASSIUM 3.8 mmol/L (3.5-5.1)
[2018-05-06] MEDS: LACTULOSE 10 G/15 ML UDC (PYXIS) PO SCH ×4 (05:27→23:04)
[2018-05-06] MEDS: PANTOPRAZOLE 40 MG VIAL IV SCH ×2 (05:27→17:04)
[2018-05-06 05:29] LABS: NEUTROPHILS % (MANUAL) 80 (42-76)
[2018-05-06 05:30] LABS: LYMPHOCYTES % (MANUAL) 10 % (16-48); MONOCYTES % (MANUAL) 10 % (0-11.0)
[2018-05-06] MEDS: MEROPENEM 500 MG in IV NS 0.9% 100 ML IV SCH ×2 (05:32→17:03)
[2018-05-06] MEDS: PROPOFOL 100 ML IV PRN (05:39)
--- NOTE | 2018-05-06 07:10 | NUR ---
RN INITIAL NOTES RECEIVED PT INTUBATED, ON VENT. NO RESPIRATORY DISTRESS NOTED. NO SIGNS OF PAIN NOTED. PT SEDATED, ON DIPRIVAN AT 10MCG/KG/MIN. OG IN PLACE CONNECTED TO LOW INTERMITTENT SUCTION. MAYRA MIDLINE AND MARY JO PICC IN PLACE. IVF INFUSING. SANDOSTATIN AT 50MCG/HR RUNNING. FC IN PLACE. DARK TEA COLOR URINE NOTED. HEMATURIA PRESENT. BLE ELEVATED. PT COMFORTABLE. WILL MONITOR.
[2018-05-06 08:06] LABS: ABG OXYGEN SATURATION 96.1 % (92.0-98.5); ABG PCO2 35.6 mmHg (35.0-45.0); ABG PH 7.271 (7.350-7.450); ABG PO2 105.5 mmHg (75.0-100.0); AaDO2 138.8 mmHg; COHb 0.3 % (0.5-1.5); MetHb 0.9 % (0.0-1.5); O2Hb 94.9 % (94.0-97.0); SITE, ABG Right Radial
[2018-05-06] MEDS: RIFAXIMIN 550 MG TABLET PO SCH ×2 (08:28→17:04)
[2018-05-06] MEDS: THIAMINE HCL 100 MG TABLET GT SCH (08:28)
[2018-05-06] MEDS: Z GUARD REMEDY 2 OZ OINT TP SCH (08:28)
[2018-05-06] MEDS: FOLIC ACID 1 MG TABLET GT SCH (08:28)
[2018-05-06] MEDS: MIDODRINE HCL (5MG) 5 MG TABLET PO SCH ×3 (08:28→17:04)
--- NOTE | 2018-05-06 11:00 | NUR ---
RN NOTES 0900 SEEN AND EXAMINED BY DR DELUCA. OFF SEDATION. PT DOESN'T OPEN EYES NOR RESPOND TO PAIN. LEVO OFF SINCE YESTERDAY. SBP>90MMHG. MD AWARE OF CURRENT LAB VALUES, CXR AND ABG RESULT. WILL CONTINUE TO MONITOR. 1030 SEEN AND EXAMINED BY DR BLAKE. AWARE OF LAB VALUES: WBC 13.4, HGB 7.6, HVT 23, PLATELET 87. BUN 53, CREA 5.4 AND AMMONIA LEVEL 140. PT ON LACTULOSE. PT REMAINS INTUBATED, ON VENT. OFF SEDATION. DOESN'T RECOMMEND STARTING TUBE FEEDING AT THIS TIME. WILL MONITOR
[2018-05-06] MEDS ORDERED: NOREPINEPHRINE 16 MG in IV D5W 500 ML IV PRN (12:00)
[2018-05-06] MEDS: IV NS 0.9% 1,000 ML IV PRN (12:34)
[2018-05-06] MEDS: OCTREOTIDE 1,250 MCG in IV NS 0.9% 247.5 ML IV PRN (15:06)
--- NOTE | 2018-05-06 18:26 | NUR ---
RN CLOSING NOTES NO SIGNIFICANT CHANGE NOTED. KEPT HOB ELEVATED. NO SIGNS OF PAIN NOTED. BP WNL. KEPT CLEAN AND DRY. REPOSITIONED Q2. KEPT COMFORTABLE. WILL ENDORSE FOR CONTINUITY OF CARE.
--- NOTE | 2018-05-06 19:46 | NUR ---
PT RECEIVED ORALLY INTUBATED WITH A 7.5 ETT SECURED AT 24CM AT THE LIP LINE, PT IS ON THE VENT WITH NOTED SETTINGS. VENT ALARMS ARE SET AND AUDIBLE WITH BVM BY BEDSIDE. SCHOOL OFFICE MANAGER CUFF PRESSURE NOTED. VENT IS PLUGGED INTO RED OUTLET. PT SUCTIONED MODERATE AMOUNT OF THIN BLOOD TINGED SECRETIONS. NO RESPIRATORY DISTRESS NOTED AT THIS TIME, WILL CONTINUE TO MONITOR.
--- NOTE | 2018-05-06 19:50 | NUR ---
CONTRACTS ANALYST NOTES RECEIVED PT ON BED. OBTUNDED. [facility] SATURATING WELL. NO RESPIRATORY DISTRESS NOTED. ON TELE MONITOR SR 66 WITH BBB. ON LIRIANO CATH DRAINING TEA COLORED URINE. UV ACCESS ON MAYRA MIDLINE WITH NS @ 75CC/HR PATENT AND INTACT. MARY JO PICC PATENT AND INTACT WITH SANDOSTATIN RUNNING @ 50MCG/HR. HEAD OF BED ELEVATED. SIDE RAILS UP. CALL LIGHT WITHIN REACH. BED ALARM ON. WILL CONTINUE TO MONITOR PT CLOSELY.
[2018-05-07] VITALS (59 sets, daily range): BP systolic 97–125; BP diastolic 49–85
[2018-05-07] MEDS: IV NS 0.9% 1,000 ML IV PRN ×2 (01:16→14:50)
--- NOTE | 2018-05-07 03:06 | NUR ---
VICE PRESIDENT LENDING NOTES PT BEDBATH DONE. NO RESPIRATORY DISTRESS NOTED.
[2018-05-07 04:58] LABS: BASOPHILS # (AUTO) 0.2 /CMM (0.0-0.2); BASOPHILS % (AUTO) 1.7 % (0.0-2.0); EOSINOPHILS % (AUTO) 1.8 % (0.0-6.0); HEMATOCRIT 23 % (39-51); HEMOGLOBIN 7.6 g/dL (13.5-17.5); LYMPHOCYTES # (AUTO) 1.6 /CMM (0.8-4.8); LYMPHOCYTES % (AUTO) 11.6 % (20.0-44.0); MEAN CORPUSCULAR HGB CONC 34 g/dl (31.0-36.0); MEAN CORPUSCULAR VOLUME 98 fL (80-96); MONOCYTES # (AUTO) 1.9 /CMM (0.1-1.30); MONOCYTES % (AUTO) 14.2 % (2.0-12.0); NEUTROPHILS # (AUTO) 9.5 /CMM (1.8-8.9); NEUTROPHILS % (AUTO) 70.7 % (43.0-81.0); PLATELET COUNT (AUTO) 97 /CMM (150-450); RED BLOOD CELL COUNT(AUTO) 2.31 MIL/uL (4.5-6.0); WHITE BLOOD COUNT (AUTO) 13.5 K/uL (4.3-11.0)
[2018-05-07 05:08] LABS: CALCIUM, SERUM 7.7 mg/dL (8.5-10.1); CREATININE 5.6 mg/dL (0.6-1.3); MAGNESIUM 2.4 mg/dL (1.8-2.4); PHOSPHORUS 7.9 mg/dL (2.5-4.9)
[2018-05-07 05:09] LABS: ALBUMIN 1.6 g/dL (3.4-5.0); BILIRUBIN,DIRECT 12.3 mg/dL (0.0-0.2); BILIRUBIN,TOTAL 15.6 mg/dL (0.2-1.0); TOTAL PROTEIN, SERUM 6.7 g/dL (6.4-8.2)
[2018-05-07] MEDS: MEROPENEM 500 MG in IV NS 0.9% 100 ML IV SCH ×2 (05:10→17:03)
[2018-05-07] MEDS: PANTOPRAZOLE 40 MG VIAL IV SCH ×2 (05:10→17:00)
[2018-05-07] MEDS: LACTULOSE 10 G/15 ML UDC (PYXIS) PO SCH ×4 (05:10→23:28)
[2018-05-07 05:44] LABS: BAND % (MANUAL) 2 % (0.0-5.0); LYMPHOCYTES % (MANUAL) 2 % (16-48); MONOCYTES % (MANUAL) 10 % (0-11.0); NEUTROPHILS % (MANUAL) 84 (42-76)
[2018-05-07 05:45] LABS: EOSINOPHILS % (MANUAL) 2 % (0-4)
[2018-05-07 06:17] LABS: D-DIMER 14.04 mg/L(FEU (0.17-0.50)
--- NOTE | 2018-05-07 06:29 | NUR ---
DRESSING MACHINE OPERATOR NOTES PAGED WELDER EXPERIMENTAL REGARDING FIBRINOGEN OF 97. AWAITING CALL BACK.
--- NOTE | 2018-05-07 06:41 | NUR ---
ROLLER INSPECTOR NOTES PER ROLF TRUJILLO, ORDER 10 UNITS OF CRYOPRECIPITATE. NO ACTIVE BLEEDING NOTED. WILL MONITOR PT CLOSELY.
--- NOTE | 2018-05-07 07:09 | NUR ---
SUPERINTENDENT DRILLING NOTES NO ACUTE CHANGES NOTED THROUGHOUT THE SHIFT. PROVIDED COMFORT AND SAFETY. ENDORSED TO THE AM NURSE FOR CONTINUITY OF CARE
--- NOTE | 2018-05-07 07:10 | NUR ---
RN NOTES RECEIVED PT ON BED.INTUBATED, OBTUNDED. ON [facility], TOLERATING CURRENT VENT SETTING WELL,ET SUCTION DONE, ON TELE SR WITH BBB, LIRIANO CATH DRAINING TO GRAVITY WITH TEA COLORED URINE. MAYRA MIDLINE WITH NS @ 75CC/HR PATENT AND INTACT. MARY JO PICC PATENT AND INTACT WITH SANDOSTATIN RUNNING @ 50MCG/HR. OG TUBE INTACT, SIDE RAILS UPx3, CALL LIGHT WITHIN EASY REACH. BED LOCKED AND IN LOWEST POSITION, WILL CONTINUE TO MONITOR PT CLOSELY.
--- NOTE | 2018-05-07 08:07 | NUR ---
PT RECEIVED ORALLY INTUBATED WITH A 7.5 ETT SECURED AT 24CM AT THE LIP LINE, PT IS ON THE VENT WITH NOTED SETTINGS. VENT ALARMS ARE SET AND AUDIBLE WITH BVM BY BEDSIDE. LINOLEUM PRINTER CUFF PRESSURE NOTED. VENT IS PLUGGED INTO RED OUTLET. PT SUCTIONED MODERATE AMOUNT OF THIN BLOOD TINGED SECRETIONS. NO RESPIRATORY DISTRESS NOTED AT THIS TIME, WILL CONTINUE TO MONITOR.
[2018-05-07] MEDS: VANCOMYCIN 1.25 GM in IV D5W 500 ML IV SCH (08:32)
[2018-05-07] MEDS: THIAMINE HCL 100 MG TABLET GT SCH (08:33)
[2018-05-07] MEDS: FOLIC ACID 1 MG TABLET GT SCH (08:33)
[2018-05-07] MEDS: RIFAXIMIN 550 MG TABLET PO SCH ×2 (08:33→16:56)
[2018-05-07] MEDS: MIDODRINE HCL (5MG) 5 MG TABLET PO SCH ×3 (08:33→16:56)
[2018-05-07] MEDS: Z GUARD REMEDY 2 OZ OINT TP SCH (08:34)
[2018-05-07 09:22] LABS: ABG BASE EXCESS -11.4 mmol/L; ABG OXYGEN SATURATION 96.4 % (92.0-98.5); ABG PCO2 32.2 mmHg (35.0-45.0); ABG PH 7.269 (7.350-7.450); ABG PO2 113.7 mmHg (75.0-100.0); AaDO2 134.5 mmHg; COHb 0.3 % (0.5-1.5); MetHb 1.4 % (0.0-1.5); O2Hb 94.8 % (94.0-97.0); PEEP,BG 0 cm H2O; SITE, ABG Right Radial; VT, ABG 550 mL
--- NOTE | 2018-05-07 09:52 | NUR ---
DUE TO ABG RESULTS LOWERED FIO2 TO 30% WILL MONITOR CLOSELY
--- NOTE | 2018-05-07 11:23 | NUR ---
RN NOTES 10 UNITS OF CRYOPRECIPITATE INFUSED PER ENVIRONMENTAL ANALYST ORDER . NO COMPLICATION NOTED , CONTINUE TO MONITOR ,
--- NOTE | 2018-05-07 11:45 | NUR ---
PT STILL UNSTABLE TO COME DOWN FOR CT. RN WCB WHEN PT READY.
--- NOTE | 2018-05-07 14:00 | NUR ---
RN NOTES PT IS UNSTABLE AT THIS TIME , CT SCAN ON HOLD PER DR DELUCA ORDER.
[2018-05-07] MEDS: OCTREOTIDE 1,250 MCG in IV NS 0.9% 247.5 ML IV PRN (14:48)
--- NOTE | 2018-05-07 16:00 | NUR ---
RN NOTES SUPPORTIVE FAMILY AT THE BEDSIDE, VSS STABLE , CONTINUE TO MONITOR.
--- NOTE | 2018-05-07 18:51 | NUR ---
RN NOTES VSS STABLE, PT STILL INTUBATED, ORAL CARE DONE, SANDOSTATIN AT 50MCG /HR AND NS AT 75CC/HR RUNNING VIA R UPPER ARM PICC LINE , SITE CLEAN, DRY AND INTACT, SR UP x3, NO SIGNIFICANT CHANGES NOTED ON THIS SHIFT, WILL ENDORSE TO HYDROLOGY TECHNICIAN NURSE FOR CONTINUITY OF CARE.
--- NOTE | 2018-05-07 19:25 | NUR ---
PT RECEIVED ORALLY INTUBATED WITH A 7.5 ETT SECURED AT 24CM AT THE LIP LINE, PT IS ON THE VENT WITH NOTED SETTINGS. PT IS OBTUNDED. SUCTIONED MODERATE AMOUNT OF PINK TINGED .VENT ALARMS ARE SET AND AUDIBLE WITH AMBU BAG @ BEDSIDE. FRONT ELEVATOR OPERATOR CUFF PRESSURE NOTED. VENT IS PLUGGED INTO RED OUTLET. NO RESPIRATORY DISTRESS NOTED AT THIS TIME, WILL CONTINUE TO MONITOR.
--- NOTE | 2018-05-07 20:02 | NUR ---
RN NOTES RECEIVED PT ORALLY INTUBATED 7.5 ETT SECURED AT 24CM AT THE LIP. PT TOLERATING VENT SETTINGS. SX'D FOR MOD AMT OF TINGED SECRETIONS. BILATERAL BREATH SOUND RHONCHI. PT IS OBTUNDED, RESPONSIVE TO DEEP PAIN. SR WITH BBB HR 78 IN TELE MONITOR. GENERALIZED EDEMA AND JAUNDICE PRESENT. OGT IN PLACED ON LIS WITH PINKISH THICK OUTPUT. IV SITE ON MAYRA MIDLINE AND MARY JO PICC LINE WITH NS @ 75 ML.HR AND SANDOSTATIN 50 MCG/HR. OFF FROM SEDATION INTACT AND PATENT FLUSHED WELL. KEPT PT CLEAN AND COMFORTABLE IN BED. TURNED AND REPOSITIONED , OFFLOADED EXT. WITH PILLOWS. WILL CLOSELY MONITOR.
[2018-05-08] VITALS (53 sets, daily range): BP systolic 94–131; BP diastolic 56–77
[2018-05-08 04:42] LABS: CALCIUM, SERUM 7.9 mg/dL (8.5-10.1); CREATININE 6.2 mg/dL (0.6-1.3); POTASSIUM 4.2 mmol/L (3.5-5.1)
[2018-05-08] MEDS: LACTULOSE 10 G/15 ML UDC (PYXIS) PO SCH ×4 (05:00→23:26)
[2018-05-08] MEDS: IV NS 0.9% 1,000 ML IV PRN ×2 (05:00→17:57)
[2018-05-08] MEDS: PANTOPRAZOLE 40 MG VIAL IV SCH ×2 (05:00→17:01)
[2018-05-08] MEDS: MEROPENEM 500 MG in IV NS 0.9% 100 ML IV SCH ×2 (05:11→17:01)
--- NOTE | 2018-05-08 06:50 | NUR ---
RN NOTES NO SIGNIFICANT CHANGES THROUGHOUT THE SHIFT. PATIENT REMAINED ORALLY INTUBATED WITH THE SAME SETTING TOLERATED WELL. AFEBRILE. VSS. NO PRESSOR NO SEDATION. IVF ONGOING. OGT ON LIS. CONTINUE WITH ATB ORDERED. NO ACTIVE BLEEDING SHOWS. CANINE TOOTH FELL SLIGHT BLEEDING NOTED. KEPT PT CLEAN AND COMFORTABLE IN BED BEDBATH DONE ANS TOLERATED WELL. WILL ENDORSED CONTINUITY OF CARE TO AM NURSE.
--- NOTE | 2018-05-08 07:00 | NUR ---
RN NOTES RECEIVED PT ORALLY INTUBATED ,TOLERATING CURRENT VENT SETTINGS WELL, OBTUNDENT, DOES NOT FOLLOW COMMAND , RESPONSIVE TO DEEP PAIN STIMULI, ON TELE SR WITH BBB HR IN 80'S, OGT INTACT , AND CONNECTED TO LOW INTERMITTENT WALL SUCTIONING, GENERALIZED EDEMA AND JAUNDICE NOTED , NS @ 75 CC/ HR AND SANDOSTATIN AT 50 MCG/HR RUNNING , L UPPER ARM PICC LINE AND R UPPER ARM MIDLINE SITES ,CLEAN, DRY AND INTACT, SR UP x3, CALL LIGHT WITHIN EASY REACH, BED LOCKED AND IN LOWEST POSITION , CONTINUE TO MONITOR.
[2018-05-08 07:07] LABS: BASOPHILS # (AUTO) 0.2 /CMM (0.0-0.2); BASOPHILS % (AUTO) 1.5 % (0.0-2.0); HEMATOCRIT 21 % (39-51); HEMOGLOBIN 7.2 g/dL (13.5-17.5); LYMPHOCYTES # (AUTO) 1.4 /CMM (0.8-4.8); LYMPHOCYTES % (AUTO) 11.9 % (20.0-44.0); MEAN CORPUSCULAR HGB CONC 34 g/dl (31.0-36.0); MEAN CORPUSCULAR VOLUME 99 fL (80-96); MONOCYTES # (AUTO) 1.6 /CMM (0.1-1.30); MONOCYTES % (AUTO) 13.8 % (2.0-12.0); NEUTROPHILS # (AUTO) 8.1 /CMM (1.8-8.9); NEUTROPHILS % (AUTO) 70.8 % (43.0-81.0); PLATELET COUNT (AUTO) 94 /CMM (150-450); RED BLOOD CELL COUNT(AUTO) 2.18 MIL/uL (4.5-6.0); WHITE BLOOD COUNT (AUTO) 11.4 K/uL (4.3-11.0)
[2018-05-08] MEDS: RIFAXIMIN 550 MG TABLET PO SCH ×2 (08:15→17:01)
[2018-05-08] MEDS: THIAMINE HCL 100 MG TABLET GT SCH (08:15)
[2018-05-08] MEDS: MIDODRINE HCL (5MG) 5 MG TABLET PO SCH ×3 (08:16→17:01)
[2018-05-08] MEDS: FOLIC ACID 1 MG TABLET GT SCH (08:16)
[2018-05-08 08:17] LABS: ABG OXYGEN SATURATION 94.7 % (92.0-98.5); ABG PCO2 34.2 mmHg (35.0-45.0); ABG PH 7.241 (7.350-7.450); ABG PO2 95.1 mmHg (75.0-100.0); AaDO2 78.6 mmHg; COHb 0.1 % (0.5-1.5); MetHb 1.1 % (0.0-1.5); O2Hb 93.6 % (94.0-97.0); PEEP,BG 0 cm H2O; SITE, ABG Right Radial
[2018-05-08] MEDS: Z GUARD REMEDY 2 OZ OINT TP SCH (08:18)
[2018-05-08 09:00] LABS: BAND % (MANUAL) 4 % (0.0-5.0); EOSINOPHILS % (MANUAL) 2 % (0-4); LYMPHOCYTES % (MANUAL) 7 % (16-48); METAMYELOCYTES % 1 % (0-0); MONOCYTES % (MANUAL) 13 % (0-11.0); NEUTROPHILS % (MANUAL) 73 (42-76)
--- NOTE | 2018-05-08 12:00 | NUR ---
RN NOTES SUPPORTIVE FAMILY AT THE BEDSIDE, ORAL CARE DONE, VSS STABLE, CONTINUE TO MONITOR .
[2018-05-08] MEDS: OCTREOTIDE 1,250 MCG in IV NS 0.9% 247.5 ML IV PRN (15:17)
--- NOTE | 2018-05-08 16:00 | NUR ---
RN NOTES FAMILY REQUESTING TO CONTINUE AND TREAT THE PT WITH BLOOD PRODUCTS IF NEEDED, DR. BLAKE NOTIFED.
--- NOTE | 2018-05-08 18:00 | NUR ---
RN NOTES TRACH SUCTION DONE, VSS STABLE, SANDOSTATIN AT 50MCG/HR AND NS AT 75CC/HR RUNNING VIA R UPPER ARM IV SITE, SR UP x3, CALL LIGHT WITHIN EASY REACH, BED LOCKED AND IN LOWEST POSITION, NO SIGNIFICANT CHANGES NOTED ON THIS SHIFT, WILL ENDOSE TO ADVANCED NURSING PROFESSOR NURSE FOR CONTINUITY OF CARE .
--- NOTE | 2018-05-08 19:30 | NUR ---
GUEST SERVICES REPRESENTATIVE: RECEIVED ORALLY INTUBATED PT WT VENT SETTINGS ORDERED. NO ACUTE DISTRESS, NO EVIDENCE OF DISCOMFORT. WITHDRAWS TO DEEP PAIN STIMULI. SR WT BBB ON PORCELAIN ENAMEL REPAIRER. AFEBRILE. BP WNL AND STILL OFF VASOPRESSORS. OGT TO LIS WT MINIMAL PINK/YELLOWISH SECRETIONS. MARY JO PICC AND MAYRA MIDLINE INTACT AND PATENT RUNNING NS AT 75ML/HR AND SANDOSTATIN AT 50MCG/HR WT NO S/S OF IV COMPLICATIONS. F/C PATENT AND INTACT DRAINING TEA COLORED URINE TO GRAVITY. RECTAL TUBE IN PLACE WT DARK GREEN LIQUID STOOLS. HOB AT 35 DEGREES. SAFETY PRECAUTION NOTED. WILL CONTINUE TO MONITOR.
[2018-05-08] MEDS ORDERED: MICAFUNGIN SODIUM 100 MG in IV NS 0.9% 100 ML IV SCH (20:00)
[2018-05-09] VITALS (36 sets, daily range): BP systolic 109–144; BP diastolic 58–77
[2018-05-09 04:43] LABS: BASOPHILS # (AUTO) 0.5 /CMM (0.0-0.2); BASOPHILS % (AUTO) 3.8 % (0.0-2.0); EOSINOPHILS % (AUTO) 1.5 % (0.0-6.0); HEMATOCRIT 22 % (39-51); HEMOGLOBIN 7.3 g/dL (13.5-17.5); LYMPHOCYTES # (AUTO) 1.2 /CMM (0.8-4.8); MEAN CORPUSCULAR HGB CONC 34 g/dl (31.0-36.0); MEAN CORPUSCULAR VOLUME 99 fL (80-96); MONOCYTES # (AUTO) 1.7 /CMM (0.1-1.30); MONOCYTES % (AUTO) 13.8 % (2.0-12.0); NEUTROPHILS # (AUTO) 8.6 /CMM (1.8-8.9); NEUTROPHILS % (AUTO) 70.9 % (43.0-81.0); PLATELET COUNT (AUTO) 92 /CMM (150-450); RED BLOOD CELL COUNT(AUTO) 2.19 MIL/uL (4.5-6.0); WHITE BLOOD COUNT (AUTO) 12.1 K/uL (4.3-11.0)
[2018-05-09 04:56] LABS: CALCIUM, SERUM 8.1 mg/dL (8.5-10.1); CREATININE 6.8 mg/dL (0.6-1.3); POTASSIUM 4.5 mmol/L (3.5-5.1)
[2018-05-09] MEDS: PANTOPRAZOLE 40 MG VIAL IV SCH (05:32)
[2018-05-09] MEDS: LACTULOSE 10 G/15 ML UDC (PYXIS) PO SCH ×2 (05:32→12:17)
[2018-05-09] MEDS: MEROPENEM 500 MG in IV NS 0.9% 100 ML IV SCH (05:33)
--- NOTE | 2018-05-09 06:00 | NUR ---
SHADE MATCHER: NO SIGNIFICANT DAVIAN DURING THE SHIFT. VS WITHIN PT's BASELINE. ALL NEEDS MET.
[2018-05-09 06:06] LABS: D-DIMER 33.7 mg/L(FEU (0.17-0.50)
[2018-05-09 06:15] LABS: EOSINOPHILS % (MANUAL) 1 % (0-4); LYMPHOCYTES % (MANUAL) 4 % (16-48); MONOCYTES % (MANUAL) 12 % (0-11.0); NEUTROPHILS % (MANUAL) 83 (42-76)
--- NOTE | 2018-05-09 06:58 | NUR ---
RT PT RECEIVED ORALLY INTUBATED WITH NOTED SETTING. ETT PATENT AND SECURE VIA ANCHOR FAST. APRON MAN NOTED. BILATERAL BREATH SOUNDS , SX MOD AMOUNT BLOOD TINGED SECRETION. AMBU BAG AT HOB. VENT TO RED OUTLET. ALARMS SET AND AUDIBLE. PT TOLERATED SETTING WELL ON SHIFT. NO SOB OR RESP DISTRESS NOTED. CONTINUE CURRENT CARE PLAN. Addendum: 05/09/18 at 0701 by MARCE ISABEL RT Amended: Links added.
[2018-05-09] MEDS ORDERED: VANCOMYCIN 1.25 GM in IV D5W 500 ML IV SCH (08:00)
[2018-05-09] MEDS: IV NS 0.9% 1,000 ML IV PRN (08:00)
[2018-05-09] MEDS: THIAMINE HCL 100 MG TABLET GT SCH (08:31)
[2018-05-09] MEDS: RIFAXIMIN 550 MG TABLET PO SCH ×2 (08:31→16:18)
[2018-05-09] MEDS: Z GUARD REMEDY 2 OZ OINT TP SCH (08:31)
[2018-05-09] MEDS: FOLIC ACID 1 MG TABLET GT SCH (08:31)
[2018-05-09] MEDS: MIDODRINE HCL (5MG) 5 MG TABLET PO SCH ×3 (08:31→16:18)
[2018-05-09 09:06] LABS: ABG BASE EXCESS -12.9 mmol/L; ABG OXYGEN SATURATION 94.6 % (92.0-98.5); ABG PCO2 35.8 mmHg (35.0-45.0); ABG PO2 92.8 mmHg (75.0-100.0); COHb 0.3 % (0.5-1.5); MetHb 0.5 % (0.0-1.5); O2Hb 93.8 % (94.0-97.0); SITE, ABG Left Radial
--- NOTE | 2018-05-09 10:30 | NUR ---
ICU/RN: Labs, CXR, ABG reviewed with Dr Martinez. ETT retracted by 2cm per MD order. Now at 24cm lip line. Addendum: 05/09/18 at 1114 by GEORGE FISHER RN Now at 22cm lip line
--- NOTE | 2018-05-09 10:35 | NUR ---
ETT RETRACTED [address]CM [address] DELUCA ORDERS. ETT NOW AT 22CM AT THE LIP. DIRECTOR OF LOGISTICS DONE. BILAT. B/S AUSCULTATED. SPO2 WNL.
[2018-05-09] MEDS ORDERED: DC PROPOFOL WHEN EXTUBATED XX PRN (17:15)
--- NOTE | 2018-05-09 17:15 | NUR ---
ICU/RN: Dr Early at bedside; lengthy dw Reselia, mother regarding grim prognosis. Family in agreement with providing comfort focused care for pt. Per family, please wait until Claudia Almeida (daughter) at bedside prior to terminal extubation. research animal attendant aware.
[2018-05-09] MEDS ORDERED: HYDROMORPHONE 1 MG/1 ML DISP.SYRIN IV PRN (17:30)
--- NOTE | 2018-05-09 19:00 | NUR ---
SEWAGE PLANT OPERATOR NOTES RECEIVED PATIENT ORALLY INTUBATED TO THE VENTILATOR ON AC MODE,OBTUNDED,+ COUGH AND GAG WHEN SUCTIONED,BUT DOES NOT OPEN EYES,NO MOVEMENT NOTED OF ANY EXTREMITIES.FOR TERMINAL EXTUBATION ,JUST AWAITING DAUGHTER TO COME.FOR COMFORT MEASURES ONLY,ALL MEDS D'CD.,FOR COMFORT MEASURES .
--- NOTE | 2018-05-09 19:52 | NUR ---
RT PT RECEIVED ORALLY INTUBATED WITH NOTED SETTING. ETT PATENT AND SECURE VIA ANCHOR FAST. ACCOUNTS RECEIVABLE COLLECTOR NOTED. BILATERAL BREATH SOUNDS , SX MOD AMOUNT BLOOD TINGED SECRETION. AMBU BAG AT HOB. VENT TO RED OUTLET. ALARMS SET AND AUDIBLE. PT TOLERATED SETTING WELL ON SHIFT. NO SOB OR RESP DISTRESS NOTED. CONTINUE CURRENT CARE PLAN. Addendum: 05/09/18 at 3 by JOHN WOLF RT Amended: Links added.
--- NOTE | 2018-05-09 21:30 | NUR ---
TUBE TEST TECHNICIAN NOTES DAUGHTER AT BEDSIDE,AWAITING MORE FAMILY MEMBERS TO COME. PER DAUGHTER,SHE DOES NOT WANT THE ENDOTRACHEAL TUBE OUT UNTIL THEY LIVE,SHE DOES NOT WANT TO SEE IT.
--- NOTE | 2018-05-09 22:00 | NUR ---
UNIX ANALYST NOTES EXPECTING MORE FAMILY MEMBERS TO COME PER DAUGHTER.
[2018-05-10] VITALS (10 sets, daily range): BP systolic 80–108; BP diastolic 49–65
--- NOTE | 2018-05-10 00:02 | NUR ---
VP STRATEGY NOTES FAMILY STILL AT BEDSIDE,STILL PREFERS TO EXTUBATE PATIENT ONCE THEY LEAVE.
--- NOTE | 2018-05-10 00:19 | NUR ---
PT EXTUBATED PER MD ORDER. SUPPLEMENTAL OXYGEN PLACED AT 5LPM VIA NASAL CANNULA. Addendum: 05/10/18 at 0020 by JOHN WOLF RT Amended: Links added.
[2018-05-10] MEDS: LORAZEPAM INJ 2 MG/ML VIAL IV PRN ×4 (00:23→15:25)
[2018-05-10] MEDS: HYDROMORPHONE 1 MG/1 ML DISP.SYRIN IV PRN ×3 (01:18→15:14)
--- NOTE | 2018-05-10 04:00 | NUR ---
MAIL SORTER AND DELIVERY NOTES PATIENT REMAINS UNRESPONSIVE,NO RESPONSE TO ANY STIMULI,STILL WITH GOOD BP AND HEART RATE,BREATHING SLIGHTLY LABORED BUT SATURATING 100 % 0N NC 3L/MIN.CONTINUE COMFORT CARE.
--- NOTE | 2018-05-10 05:10 | NUR ---
PRINCIPAL PROCESS ENGINEER NOTES TRANSFERED TO MED/SURG FLOOR ROOM # 314 BED 1 ,.REMAINS UNRESPONSIVE,STILL BREATHING WITH HR =80'S .REPORT GIVEN TO SOFIA CHOPRA.
--- NOTE | 2018-05-10 05:15 | NUR ---
RN OPENING NOTES PT RECEIVED FROM ICU. UNRESPONSIVE TO ALL STIMULI. EXTREMITIES FLACCID AND EDEMATOUS, ELEVATED ON PILLOWS. HOB ELEVATED FOR MAXIMUM LUNG EXPANSION. BREATHING UNLABORED BUT UNEVEN, WITH O2 VIA NC AT 3LPM, SPO2 95%. MARY JO PICC AND MAYRA MIDLINE AND RFA IV LINES PATENT AND INTACT. ABDOMEN DISTENDED. SUCTION SETUP AT BEDSIDE. ASPIRATION PRECAUTIONS AND COMFORT MEASURES IMPLEMENTED. DOES NOT APPEAR TO BE IN DISTRESS. LIRIANO IN PLACE AND DRAINING MINIMAL DARK ALFREDO URINE TO GRAVITY. FLEXISEAL IN PLACE WITH NO OUTPUT. BED IN LOW/LOCKED POSITION, SIDE RAILS UP FOR SAFETY. WILL MONITOR CLOSELY
--- NOTE | 2018-05-10 07:30 | NUR ---
MS RN OPENING NOTES PT UNRESPONSIVE TO ALL STIMULI. EXTREMITIES REMAIN ELEVATED ON PILLOWS. HOB ELEVATED FOR MAXIMUM LUNG EXPANSION. BREATHING EVEN AND UNLABORED, RR 11 AT THIS TIME. O2 VIA NC AT 3LPM, SPO2 99 %. MARY JO PICC AND MAYRA MIDLINE AND RFA IV LINES PATENT AND INTACT. COMFORT MEASURES IMPLEMENTED. FAMILY AT THE BED SIDE. WILL CONTINUE TO MONITOR
--- NOTE | 2018-05-10 07:34 | NUR ---
RN CLOSING NOTES PT REMAINS UNRESPONSIVE TO ALL STIMULI. EXTREMITIES REMAIN ELEVATED ON PILLOWS. HOB ELEVATED FOR MAXIMUM LUNG EXPANSION. BREATHING EVEN AND UNLABORED, RR 10 AT THIS TIME. O2 VIA NC AT 3LPM, SPO2 >92%. MARY JO PICC AND MAYRA MIDLINE AND RFA IV LINES PATENT AND INTACT. COMFORT MEASURES IMPLEMENTED. ADMINISTERED PRN ATIVAN, PT APPEARED TO BE UNCOMFORTABLE WITH INCREASED WORK OF BREATHING. LIRIANO AND FLEXISEAL IN PLACE AND DRAINING TO GRAVITY. BED IN LOW/LOCKED POSITION, SIDE RAILS UP FOR SAFETY. TURBINE MECHANIC UPDATED FAMILY REGARDING PT'S CONDITION AND TRANSITION TO 314-1. ENDORSED TO DAY SHIFT RN DAVIAN.
[2018-05-10] MEDS: Z GUARD REMEDY 2 OZ OINT TP SCH (08:30)
[2018-05-10] MEDS ORDERED: VANCOMYCIN 1.25 GM in IV D5W 500 ML IV SCH (09:00)
[2018-05-10] MEDS ORDERED: SCOPOLAMINE HBR 1 EA PATCH.TD72 TD SCH ×2 (11:00→12:00)
[2018-05-10] MEDS ORDERED: KEY,NONCONTROL,TO KEEP IN PYXI 1 EA MC ONE (16:02)
--- NOTE | 2018-05-10 16:41 | NUR ---
STARTED WEB SERVICES ARCHITECT PUMP FOR COMFORT MEASURES. ORDERED BY DR. BLAKE
--- NOTE | 2018-05-10 19:25 | NUR ---
NO CHANGES THROUGHOUT OF SHIFT. DE ALCOHOLIZER PUMP INFUSING MORPHINE FOR COMFORT MEASURES. FAMILY MEMBER AT BEDSIDE. WILL INDORSE TO NEXT SIFT FOR DAVIAN.
--- NOTE | 2018-05-10 20:00 | NUR ---
MS RN NOTES PT ON COMFORT MEASURES. PT RESPONSIVE ONLY TO DEEP PAIN. ON MORPHINE DRIP INFUSING WELL AT 5MG/HR. PT WITH NO S/SX OF PAIN OR DISCOMFORT AT THIS TIME. WITH OXYGEN VIA NC FOR COMFORT. FAMILY AT BEDSIDE. CALL LIGHT WITHIN REACH. BED IN LOWEST POSITION. SR UP X 3 FOR SAFETY. WILL CONTINUE TO MONITOR.
--- NOTE | 2018-05-11 01:17 | NUR ---
MS RN NOTES PT UNRESPONSIVE. NO APICAL PULSE, NO BREATHING NOTED, NO VITALS SIGNS, PUPILS FIXED AND DILATED. PRONOUNCED BY ME AND LOURDES CHOPRA
--- NOTE | 2018-05-11 01:20 | NUR ---
MS RN NOTES CALLED CARRIE, MOTHER OF PT, NOTIFIED HER THAT PT AT 0117 AM. CONDOLENCES OFFERED TO FAMILY.
--- NOTE | 2018-05-11 01:25 | NUR ---
MS RN NOTES CALLED [facility]. REPORTED TO CAROLE. WITH REFERRAL ID [id number]
--- NOTE | 2018-05-11 01:30 | NUR ---
MS RN NOTES NOTIFIED RN RECEPTIONIST NURSE RE PT'S EXPIRATION. NEED TO NOTIFY GALLERY OR MUSEUM CURATOR PER RN SUP. WILL F/U WITH GALLERY OR MUSEUM CURATOR.
--- NOTE | 2018-05-11 02:00 | NUR ---
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 VOCATIONAL ED INSTRUCTOR'S NAME IS LUKASZ, CASE#[id number]
--- NOTE | 2018-05-11 02:30 | NUR ---
MS RN NOTES PAGED [facility] JEWELRY MAKING INSTRUCTOR DYE MACHINE TENDER FOR PSYCHIATRIC. AWAITING FOR RESPONSE.
--- NOTE | 2018-05-11 03:00 | NUR ---
MS RN NOTES CURLEEN FROM [facility] CALLED. PT IS NOT A CANDIDATE FOR ORGAN DONATION. CASE# [id number]
--- NOTE | 2018-05-11 03:05 | NUR ---
MS RN NOTES [facility] RADIO BOARD OPERATOR ANNOUNCER CALLED. 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 NNO AT THIS TIME.
== END 2018-05-11 01:17 | disposition expired | DRG 432 ==
LOC: ER 19:54 → TELE 23:51 → EDBD 23:51 → MED 04-28 09:07 → ICU 04-29 09:22 → MED 05-10 05:06
PROVIDERS: ADMIT Nurse Practitioner Acute Care; ATTEND Internal Medicine
PROC: 0BH17EZ Insertion of Endotracheal Airway into Trachea, Via Natural or Artificial Opening (ICD-10-PCS; principal; 2018-04-29)
PROC: 5A1955Z Respiratory Ventilation, Greater than 96 Consecutive Hours (ICD-10-PCS; 2018-04-29)
PROC: B547ZZA Ultrasonography of Left Subclavian Vein, Guidance (ICD-10-PCS; 2018-04-30)
PROC: 30233M1 Transfusion of Nonautologous Plasma Cryoprecipitate into Peripheral Vein, Percutaneous Approach (ICD-10-PCS; 2018-04-30)
PROC: 05H633Z Insertion of Infusion Device into Left Subclavian Vein, Percutaneous Approach (ICD-10-PCS; 2018-04-30)
PROC: 30233R1 Transfusion of Nonautologous Platelets into Peripheral Vein, Percutaneous Approach (ICD-10-PCS; 2018-05-02)
PROC: 30233N1 Transfusion of Nonautologous Red Blood Cells into Peripheral Vein, Percutaneous Approach (ICD-10-PCS; 2018-05-03)
PROC: 02HV33Z Insertion of Infusion Device into Superior Vena Cava, Percutaneous Approach (ICD-10-PCS; 2018-05-04)
PROC: B548ZZA Ultrasonography of Superior Vena Cava, Guidance (ICD-10-PCS; 2018-05-04)
DX: K70.40 Alcoholic hepatic failure without coma (principal); A41.9 Sepsis, unspecified organism; J15.9 Unspecified bacterial pneumonia; J96.01 Acute respiratory failure with hypoxia; R65.21 Severe sepsis with septic shock; J69.0 Pneumonitis due to inhalation of food and vomit; E43 Unspecified severe protein-calorie malnutrition; G92 Toxic encephalopathy; N17.0 Acute kidney failure with tubular necrosis; K76.7 Hepatorenal syndrome; D65 Disseminated intravascular coagulation [defibrination syndrome]; I81 Portal vein thrombosis; E87.1 Hypo-osmolality and hyponatremia; E44.0 Moderate protein-calorie malnutrition; F10.239 Alcohol dependence with withdrawal, unspecified; K92.2 Gastrointestinal hemorrhage, unspecified; D62 Acute posthemorrhagic anemia; Z68.41 Body mass index [BMI] 40.0-44.9, adult; D68.4 Acquired coagulation factor deficiency; D61.818 Other pancytopenia; Z51.5 Encounter for palliative care; E83.42 Hypomagnesemia; D53.9 Nutritional anemia, unspecified; E83.39 Other disorders of phosphorus metabolism; D69.59 Other secondary thrombocytopenia; E88.09 Other disorders of plasma-protein metabolism, not elsewhere classified; M62.50 Muscle wasting and atrophy, not elsewhere classified, unspecified site; E87.6 Hypokalemia; E86.1 Hypovolemia; G47.33 Obstructive sleep apnea (adult) (pediatric); F17.210 Nicotine dependence, cigarettes, uncomplicated; Z66 Do not resuscitate; K70.10 Alcoholic hepatitis without ascites; K70.30 Alcoholic cirrhosis of liver without ascites; E66.01 Morbid (severe) obesity due to excess calories; K70.0 Alcoholic fatty liver; I46.9 Cardiac arrest, cause unspecified; S03.2XXA Dislocation of tooth, initial encounter; I86.4 Gastric varices; T51.0X1A Toxic effect of ethanol, accidental (unintentional), initial encounter; Y90.9 Presence of alcohol in blood, level not specified
CPT/HCPCS: 31720; 36415; 36569; 36600; 71045-TC; 76700-TC; 76705-TC; 80048-TC; 80053-TC; 80061-TC; 80074; 80076-TC; 80202-TC; 80305; 81000-TC; 82140-TC; 82247-TC; 82248-TC; 82272-TC; 82570-TC; 82728-TC; 82803-TC; 82962-TC; 83540-TC; 83735-TC; 83935-TC; 84100-TC; 84300-TC; 84425; 84439-TC; 84443-TC; 84484-TC; 85025-TC; 85396; 85610-TC; 85730-TC; 86850-TC; 86921-TC; 87040-TC; 87070-TC; 87081-TC; 87102-TC; 92950-TC; 93307-TC; 93976-TC; 94002-TC; 94003-TC; 94640-TC; 94760-TC; A4216; A6402; A6403; C9113; G0378; J0171; J1170; J1447; J1956; J2060; J2185; J2248; J2274; J2354; J2543; J3370; J3411; J3430; J3475; J3480; J3490; J7030; J7040; J7042; J7050; J7060; P9012; P9016-BL; P9034-BL; P9047